=== PATIENT | male | born 1960 | race African-American/Black ===

== ENCOUNTER 2016-05-26 13:43 | Inpatient (IN) | payer OTHER ==
[2016-05-26 17:00] VITALS: BMI 33.0
--- NOTE | 2016-05-26 19:35 | HP ---
Admission ROS [facility] [place] [facility] Chief Complaint: i want to go to rehab Allergies/Adverse Reactions: Allergies Allergy/AdvReac Type Severity Reaction Status Date / Time Fish Containing Products Allergy Severe Hives Verified 05/26/16 17:00 enalapril [Enalapril] Allergy Intermediate MOUTH Verified 05/26/16 17:00 SWELLING (ENALAPRIL SUSPECTED) Pork/Porcine Containing Allergy Unknown "NO PORK" Verified 05/26/16 17:00 Products History of Present Illness: 55 years old male with long history of alcohol opiate nicotine dependence, has diabetes ii and positive ppd, chronic back pain, sciatic left leg is admitted to rehab Exam Limitations: No Limitations - Ebola screening Have you traveled outside of the country in the last 21 days: No Have you had contact with anyone from an Ebola affected area: No Have you been sick,other than usual withdrawal symptoms: No Do you have a fever: No - Review of Systems Constitutional: Weight Stable EENT: reports: Blurred Vision (diabetes complication) Respiratory: reports: Cough Cardiac: reports: No Symptoms Reported GI: reports: Constipated : reports: No Symptoms Reported Musculoskeletal: reports: Back Pain Neuro: reports: No Symptoms reported Endocrine: reports: No Symptoms Reported Hematology: reports: No Symptoms Reported Psychiatric: reports: Judgement Intact, Orientated x3, Depressed Other Systems: Reviewed and Negative Patient History - Patient Medical History Hx Anemia: No Hx Asthma: No Hx Chronic Obstructive Pulmonary Disease (COPD): No Hx Cancer: No Hx Cardiac Disorders: No Hx Congestive Heart Failure: No Hx Hypertension: Yes (non compliance) Hx Hypercholesterolemia: No Hx Pacemaker: No HX Cerebrovascular Accident: No Hx Seizures: No Hx Dementia: No Hx Diabetes: Yes Hx Gastrointestinal Disorders: No Hx Liver Disease: No Hx Genitourinary Disorders: No Hx Sexually Transmitted Disorders: No Hx Renal Disease (ESRD): No Hx Thyroid Disease: No Hx Human Immunodeficiency Virus (HIV): No Hx Hepatitis C: No Hx Depression: Yes Hx Suicide Attempt: No Hx Bipolar Disorder: No Hx Schizophrenia: No - Patient Surgical History Past Surgical History: No Hx Neurologic Surgery: No Hx Cataract Extraction: No Hx Cardiac Surgery: No Hx Lung Surgery: No Hx Breast Surgery: No Hx Breast Biopsy: No Hx Abdominal Surgery: No Hx Appendectomy: No Hx Cholecystectomy: No Hx Genitourinary Surgery: No Hx Orthopedic Surgery: No - PPD History Previous Implant?: Yes Documented Results: Positive w/proof Implanted On Prior [facility] Admission?: No Date: 02/19/16 PPD to be Administered?: No - Smoking Cessation Smoking history: Current every day smoker Have you smoked in the past 12 months: Yes Aproximately how many cigarettes per day: 10 Cigars Per Day: 0 Hx Chewing Tobacco Use: No Initiated information on smoking cessation: Yes 'Breaking Loose' booklet given: 05/26/16 - Substance & Tx. History Hx Alcohol Use: Yes Hx Substance Use: Yes Substance Use Type: Alcohol, Opiates Hx Substance Use Treatment: Yes - Substances Abused Alcohol Route: Oral Frequency: Daily Amount used: 16oz x 6pack +pint gin Age of first use: 29 Date of Last Use: 05/19/16 Family Disease History - Family Disease History Family Disease History: Diabetes: Brother, Other: Father (), Mother ( ), Sister () Admission Physical Exam S - Vital Signs Vital Signs: Vital Signs - 24 hr 05/26/16 16:58 Temperature 96.9 F L Pulse Rate 85 Respiratory 18 Rate Blood Pressure 109/79 - Physical General Appearance: Yes: No Apparent Distress, Nourished, Appropriately Dressed HEENTM: Yes: Hearing grossly Normal, Normal ENT Inspection, Normocephalic, Normal Voice, Other (poor eye sight - diabetes related) Respiratory: Yes: Chest Non-Tender, Lungs Clear, Normal Breath Sounds, No Respiratory Distress Neck: Yes: Supple, Trachea in good position Breast: Yes: Breasts Symetrical Cardiology: Yes: Regular Rhythm, Regular Rate, S1, S2 Abdominal: Yes: Non Tender, Soft Genitourinary: Yes: Within Normal Limits Back: Yes: Normal Inspection Musculoskeletal: Yes: full range of Motion, Gait Steady Extremities: Yes: Normal Inspection, Normal Range of Motion, Non-Tender Neurological: Yes: Fully Oriented, Alert, Motor Strength 5/5, Normal Response, Depressed Affect Integumentary: Yes: Warm Lymphatic: Yes: Within Normal Limits - Diagnostic (1) Essential hypertension Current Visit: Yes Status: Active (2) Alcohol dependence with uncomplicated withdrawal Current Visit: Yes Status: Acute (3) Opioid dependence with withdrawal Current Visit: Yes Status: Acute (4) Nicotine dependence Current Visit: Yes Status: Acute Qualifiers: Nicotine product type: cigarettes Substance use status: in withdrawal Qualified Code(s): F17.213 - Nicotine dependence, cigarettes, with withdrawal (5) Diabetes mellitus type II, controlled Current Visit: Yes Status: Acute Qualifiers: Diabetes mellitus complication status: with ophthalmic complications Diabetes mellitus complication detail: with diabetic retinopathy Diabetic retinopathy severity: with mild nonproliferative retinopathy Diabetes mellitus macular edema: without macular edema Diabetes mellitus termite technician insulin use: without fdc use Qualified Code(s): E11.329 - Type 2 diabetes mellitus with mild nonproliferative diabetic retinopathy without macular edema (6) Chronic low back pain Current Visit: Yes Status: Chronic (7) Left sciatic nerve pain Current Visit: Yes Status: Acute Cleared for Admission [facility] - Detox or Rehab [facility] Level of Care: Observation Bed Detox Regimen/Protocol: Not Applicable Claeared for Rehab Admission: Yes [facility] Breath Alcohol Content Breath Alcohol Content: 0 Urine Drug Screen - Results Drug Screen Negative: No Urine Drug Screen Results: BZO-Benzodiazepines, MTD-Methadone
[2016-05-26] MEDS ORDERED: LOPERAMIDE HCL 2 MG CAPSULE PO PRN (19:42)
[2016-05-26] MEDS ORDERED: MAG HYDROX/AL HYDROX/SIMETH 30 ML UNIT-DOSE CUP PO PRN (19:42)
[2016-05-26] MEDS ORDERED: NICOTINE POLACRILEX 2 MG GUM BC PRN (19:42)
[2016-05-26] MEDS ORDERED: MAGNESIUM HYDROX 2400MG/30ML ORAL SUSPENSION 30 ML CUP PO PRN (19:42)
[2016-05-26] MEDS ORDERED: MAGNESIUM CITRATE 300 ML BOTTLE PO PRN (19:42)
[2016-05-26] MEDS: THIAMINE HCL 100 MG TABLET (FP) PO SCH (21:41)
[2016-05-26] MEDS: hydrOXYzine PAMOATE 50 MG CAPSULE (FP) PO PRN (21:43)
--- NOTE | 2016-05-26 23:08 | PN ---
[facility] Progress Note Note: RECEIVED NURSE CALL PATIENT REQUESTS SECOND DOSE OF METFORMIN 500 MG TO BE ADMINISTERED BEFORE BED TIME CONTINUE DETOX
[2016-05-26] MEDS: CYCLOBENZAPRINE HCL 10 MG TABLET (FP) PO PRN (23:42)
[2016-05-26] MEDS: metFORMIN HCL 500 MG TABLET (FP) PO SCH (23:42)
[2016-05-26] MEDS: guaiFENesin/D-METHORPHAN HB 10 ML UNIT-DOSE CUPS PO PRN (23:42)
--- NOTE | 2016-05-27 00:01 | PN ---
[facility] Progress Note Note: RECEIVED PHARMACIST CALL CREATININ 2.3 IN 2013 LAB PENDING 2016 LATEST METFORMIN RENEW ON 05/22/16 CONTINUE REHAB
[2016-05-27] MEDS: metFORMIN HCL 500 MG TABLET (FP) PO SCH ×2 (06:35→21:44)
[2016-05-27] MEDS ORDERED: metFORMIN HCL 500 MG TABLET (FP) PO SCH ×2 (07:00→22:00)
[2016-05-27] MEDS: amLODIPine BESYLATE 5 MG TABLET (FP) PO SCH (10:20)
[2016-05-27] MEDS: LIDOCAINE 5% TOPICAL PATCH TP SCH (10:20)
[2016-05-27] MEDS: PRENATAL VITAMINS W/ FOLIC ACID TABLET (FP) PO SCH (10:20)
[2016-05-27] MEDS: NICOTINE 14 MG/24 HOURS TOPICAL PATCH TD SCH (10:21)
[2016-05-27] MEDS: THIAMINE HCL 100 MG TABLET (FP) PO SCH (21:44)
[2016-05-27] MEDS: diphenhydrAMINE HCL 50 MG CAPSULE PO PRN (21:45)
[2016-05-28] MEDS: metFORMIN HCL 500 MG TABLET (FP) PO SCH ×2 (06:14→21:33)
[2016-05-28] MEDS: NICOTINE 14 MG/24 HOURS TOPICAL PATCH TD SCH (10:14)
[2016-05-28] MEDS: LIDOCAINE 5% TOPICAL PATCH TP SCH (10:14)
[2016-05-28] MEDS: PRENATAL VITAMINS W/ FOLIC ACID TABLET (FP) PO SCH (10:14)
[2016-05-28] MEDS: amLODIPine BESYLATE 5 MG TABLET (FP) PO SCH (10:14)
[2016-05-28 10:18] LABS: MCHC 32.6 g/dl (32.0-35.9); MEAN CELL VOLUME 95.3 fl (80-96); PLATELET COUNT 88 K/MM3 (134-434); RDW 14.1 % (11.9-15.9); WHITE BLOOD COUNT 3.3 K/mm3 (4.0-10.0)
[2016-05-28 10:24] LABS: ALBUMIN 3.3 g/dl (3.4-5.0)
[2016-05-28 10:27] LABS: ALK PHOS 88 U/L (45-117); ANION GAP 7 (8-16); BILIRUBIN,TOTAL 0.2 mg/dL (0.2-1.0); CO2 29 mmol/L (21-32); CREATININE 0.9 mg/dL (0.7-1.3); GLUCOSE,RANDOM 94 mg/dL (74-106); SGOT/AST 13 U/L (15-37); SGPT/ALT 18 U/L (12-78); TOT PROT 6.3 g/dl (6.4-8.2)
[2016-05-28] MEDS: THIAMINE HCL 100 MG TABLET (FP) PO SCH (21:33)
[2016-05-28] MEDS: guaiFENesin/D-METHORPHAN HB 10 ML UNIT-DOSE CUPS PO PRN (21:33)
[2016-05-28] MEDS: diphenhydrAMINE HCL 50 MG CAPSULE PO PRN (21:42)
--- NOTE | 2016-05-28 22:46 | EKG ---
Test Reason : Blood Pressure : / mmHG Vent. Rate : 082 BPM Atrial Rate : 082 BPM P-R Int : 142 ms QRS Dur : 088 ms QT Int : 380 ms P-R-T Axes : 057 009 048 degrees QTc Int : 443 ms NORMAL SINUS RHYTHM NONSPECIFIC T WAVE ABNORMALITY ABNORMAL ECG NO PREVIOUS ECGS AVAILABLE Confirmed by SRIDEVI MONTIEL, EVA ([id number]) on 05/28/2016 10:45:57 PM Referred By: Confirmed By:EVA LAUREANO MD
[2016-05-29] MEDS: metFORMIN HCL 500 MG TABLET (FP) PO SCH ×2 (06:16→21:57)
[2016-05-29] MEDS: amLODIPine BESYLATE 5 MG TABLET (FP) PO SCH (10:12)
[2016-05-29] MEDS: PRENATAL VITAMINS W/ FOLIC ACID TABLET (FP) PO SCH (10:12)
[2016-05-29] MEDS: LIDOCAINE 5% TOPICAL PATCH TP SCH (10:12)
[2016-05-29] MEDS: NICOTINE 14 MG/24 HOURS TOPICAL PATCH TD SCH (10:12)
[2016-05-29] MEDS: IBUPROFEN 400 MG TABLET (FP) PO PRN (10:13)
[2016-05-29] MEDS: guaiFENesin/D-METHORPHAN HB 10 ML UNIT-DOSE CUPS PO PRN (10:14)
--- NOTE | 2016-05-29 10:28 | HP ---
Psychiatrist Admission - Data Date of interview: 05/29/16 Admission source: [facility] Identifying data: This is the first 5N inpatient Medical History: HTN, DM type II, Positive PPD(received treatment - has a CXR on file), chronic lower back pain and left sciatic nerve pain, smokes cigarettes 1PPD. Psychiatric History: Patient reports he was under the treatment for depression and anxiety last year while in [facility], was on Zoloft and Trazodone(had a priapism) He reports was on Neurontin for his back pain which helped him with his anxiety, patient reports that last year he lost a lot of family members: his parents, sisiter, and g/f, states he hears voices and sees things, states was in therapu for his losses. Physical/Sexual Abuse/Trauma History: Denies histor of sexual, physical and verbal abuse. Vital Signs: Vital Signs - 24 hr 05/29/16 05/29/16 03:29 07:25 Temperature 97.4 F L Pulse Rate 78 Respiratory 18 18 Rate Blood Pressure 138/89 Allergies/Adverse Reactions: Allergies Allergy/AdvReac Type Severity Reaction Status Date / Time Fish Containing Products Allergy Severe Hives Verified 05/26/16 17:00 enalapril [Enalapril] Allergy Intermediate MOUTH Verified 05/26/16 17:00 SWELLING (ENALAPRIL SUSPECTED) Pork/Porcine Containing Allergy Unknown "NO PORK" Verified 05/26/16 17:00 Products Date of last physical exam: 05/26/16 Concur with the findings of this exam: Yes - Substance Abuse/Tx History Hx Alcohol Use: Yes Hx Substance Use: Yes Substance Use Type: Alcohol (beer, vodka daily use), Heroin (2-3 bags ) Hx Substance Use Treatment: Yes ([facility]) - Admission Criteria Previous failed treatment: Yes Poor recovery environment: Yes Comorbidities: Yes Lacks judgement: Yes Mental Status Exam - Mental Status Exam Alert and Oriented to: Time, Place, Person Cognitive Function: Grossly Intact Patient Appearance: Well Groomed Mood: Depressed, Sad, Anxious Affect: Appropriate, Mood Congruent Patient Behavior: Cooperative Speech Pattern: Clear Voice Loudness: Normal Thought Process: Intact, Goal Oriented Thought Disorder: Not Present Hallucinations: Auditory (hears voices), Visual (reports he sees things) Suicidal Ideation: Denies Homicidal Ideation: Denies Insight/Judgement: Fair Sleep: Poorly, Difficulty falling asleep Psychiatric Findings - Problem List ([place] 1, 2,3) (1) Alcohol dependence Current Visit: No Status: Active (2) Opioid dependence Current Visit: No Status: Active (3) MDD (major depressive disorder), recurrent episode Current Visit: Yes Status: Acute (4) Bereavement Current Visit: Yes Status: Acute - Initial Treatment Plan Initial Treatment Plan: will restart Gabapentin 200 mg po tid, start Prozac 10 mg po daily and Seroquel 25 mg po hs, side-effects and benefits discussed with the patient, continue to monitor progress.
[2016-05-29] MEDS: GABAPENTIN 100 MG CAPSULE (FP) PO SCH ×2 (14:28→21:55)
[2016-05-29] MEDS: THIAMINE HCL 100 MG TABLET (FP) PO SCH (21:55)
[2016-05-29] MEDS: QUEtiapine FUMARATE 25 MG TABLET (FP) PO SCH (21:56)
[2016-05-29] MEDS ORDERED: traZODone HCL 50 MG TABLET (FP) PO SCH (22:00)
[2016-05-30] MEDS: GABAPENTIN 100 MG CAPSULE (FP) PO SCH ×3 (06:12→21:50)
[2016-05-30] MEDS: metFORMIN HCL 500 MG TABLET (FP) PO SCH ×2 (06:13→21:50)
[2016-05-30] MEDS: LIDOCAINE 5% TOPICAL PATCH TP SCH (10:19)
[2016-05-30] MEDS: PRENATAL VITAMINS W/ FOLIC ACID TABLET (FP) PO SCH (10:19)
[2016-05-30] MEDS: NICOTINE 14 MG/24 HOURS TOPICAL PATCH TD SCH (10:19)
[2016-05-30] MEDS: amLODIPine BESYLATE 5 MG TABLET (FP) PO SCH (10:19)
[2016-05-30] MEDS: FLUoxetine HCL 10 MG CAPSULE (FP) PO SCH (10:19)
[2016-05-30] MEDS: QUEtiapine FUMARATE 25 MG TABLET (FP) PO SCH (21:50)
[2016-05-30] MEDS: THIAMINE HCL 100 MG TABLET (FP) PO SCH (21:51)
[2016-05-31] MEDS: guaiFENesin/D-METHORPHAN HB 10 ML UNIT-DOSE CUPS PO PRN ×4 (00:20→21:35)
[2016-05-31] MEDS: GABAPENTIN 100 MG CAPSULE (FP) PO SCH ×3 (06:17→21:31)
[2016-05-31] MEDS: metFORMIN HCL 500 MG TABLET (FP) PO SCH ×2 (06:17→21:31)
[2016-05-31] MEDS: P-EPHED 60MG/TRIPROLIDI 2.5MG TABLET PO PRN ×2 (08:27→21:34)
[2016-05-31] MEDS: ACETAMINOPHEN 325 MG TABLET (FP) PO PRN ×2 (08:28→13:33)
[2016-05-31] MEDS: MENTHOL/PHENOL 1 EACH UD MM PRN ×3 (08:29→21:36)
[2016-05-31 09:58] LABS: URINE APPEARANCE CLEAR; URINE BILIRUBIN NEGATIVE (NEGATIVE); URINE BLOOD NEGATIVE (NEGATIVE); URINE COLOR YELLOW; URINE GLUCOSE (UA) NEGATIVE (NEGATIVE); URINE KETONE NEGATIVE (NEGATIVE); URINE LEUK ESTERASE NEGATIVE (NEGATIVE); URINE NITRITE NEGATIVE (NEGATIVE); URINE PROTEIN NEGATIVE (NEGATIVE); URINE UROBILINOGEN NEGATIVE E.U./dl (0.2-1.0)
[2016-05-31] MEDS: LIDOCAINE 5% TOPICAL PATCH TP SCH (10:22)
[2016-05-31] MEDS: PRENATAL VITAMINS W/ FOLIC ACID TABLET (FP) PO SCH (10:22)
[2016-05-31] MEDS: FLUoxetine HCL 10 MG CAPSULE (FP) PO SCH (10:22)
[2016-05-31] MEDS: amLODIPine BESYLATE 5 MG TABLET (FP) PO SCH (10:22)
[2016-05-31] MEDS: NICOTINE 14 MG/24 HOURS TOPICAL PATCH TD SCH (10:22)
[2016-05-31] MEDS ORDERED: COLLOIDAL OATMEAL 1 EACH PACKET TP PRN (13:31)
[2016-05-31] MEDS: THIAMINE HCL 100 MG TABLET (FP) PO SCH (21:31)
[2016-05-31] MEDS: QUEtiapine FUMARATE 25 MG TABLET (FP) PO SCH (21:31)
[2016-06-01] MEDS: metFORMIN HCL 500 MG TABLET (FP) PO SCH ×2 (06:21→21:10)
[2016-06-01] MEDS: GABAPENTIN 100 MG CAPSULE (FP) PO SCH (06:21)
[2016-06-01] MEDS: guaiFENesin/D-METHORPHAN HB 10 ML UNIT-DOSE CUPS PO PRN ×3 (06:21→21:11)
[2016-06-01] MEDS: P-EPHED 60MG/TRIPROLIDI 2.5MG TABLET PO PRN ×3 (06:26→21:11)
[2016-06-01] MEDS: MENTHOL/PHENOL 1 EACH UD MM PRN (06:26)
[2016-06-01] MEDS ORDERED: COLLOIDAL OATMEAL 1 EACH PACKET TP SCH (10:00)
[2016-06-01] MEDS: amLODIPine BESYLATE 5 MG TABLET (FP) PO SCH (10:28)
[2016-06-01] MEDS: PRENATAL VITAMINS W/ FOLIC ACID TABLET (FP) PO SCH (10:28)
[2016-06-01] MEDS: FLUoxetine HCL 10 MG CAPSULE (FP) PO SCH (10:28)
[2016-06-01] MEDS: NICOTINE 14 MG/24 HOURS TOPICAL PATCH TD SCH (10:29)
[2016-06-01] MEDS: LIDOCAINE 5% TOPICAL PATCH TP SCH (10:31)
[2016-06-01] MEDS ORDERED: COLLOIDAL OATMEAL 1 BAR EACH TP PRN (10:50)
[2016-06-01] MEDS: GABAPENTIN 300 MG CAPSULE (FP) PO SCH ×2 (14:25→21:09)
--- NOTE | 2016-06-01 14:30 | PN ---
Psychiatric Progress Note Vital Signs: Vital Signs Period Temp Pulse Resp BP Sys/Austin Pulse Ox Last 24 Hr 97.3 F 83 18-18 109/60 Date of Session: 06/01/16 Chief Complaint:: "insomnia, anxiety" HPI: Patient is addressing alcohol,opioid, dependence comorbid MDD and Bereavement. ROS: WNL Current Medications: Active Medications Generic Name Dose Route Start Last Admin Trade Name Freq PRN Reason Stop Dose Admin Acetaminophen 650 mg 05/26/16 19:42 05/31/16 13:33 Tylenol - PO 650 mg Q4H PRN Administration PAIN Al Hydroxide/Mg Hydroxide 30 ml 05/26/16 19:42 Mylanta Oral Suspension - PO Q6H PRN DYSPEPSIA Amlodipine Besylate 5 mg 05/27/16 10:00 06/01/16 10:28 Norvasc - PO 5 mg DAILY VERONICA Administration Colloidal Oatmeal 1 applic 06/01/16 10:50 06/01/16 11:11 Aveeno Soap - TP 1 applic DAILY PRN Administration HYGEINE Cyclobenzaprine HCl 10 mg 05/26/16 19:49 05/26/16 23:42 Flexeril - PO 10 mg TID PRN Administration MUSCLE SPASMS Diphenhydramine HCl 50 mg 05/26/16 19:42 05/28/16 21:42 Benadryl - PO 50 mg HSMR1 PRN Administration INSOMNIA Eucalyptus/Menthol/Phenol/Sorbitol 1 each 05/26/16 19:42 06/01/16 06:26 Cepastat Lozenge - MM 1 each Q4H PRN Administration SORE THROAT Fluoxetine HCl 10 mg 05/30/16 10:00 06/01/16 10:28 Prozac - PO 10 mg DAILY VERONICA Administration Gabapentin 300 mg 06/01/16 14:00 Neurontin - PO TID VERONICA Guaifenesin 10 ml 05/26/16 19:42 06/01/16 06:21 Robitussin Dm - PO 10 ml Q6H PRN Administration COUGH Hydroxyzine Pamoate 50 mg 05/26/16 19:42 05/26/16 21:43 Vistaril - PO 50 mg Q4H PRN Administration AGITATION Ibuprofen 400 mg 05/26/16 19:42 05/29/16 10:13 Motrin - PO 400 mg Q6H PRN Administration SEVERE PAIN Lidocaine 1 patch 05/27/16 10:00 06/01/16 10:31 Lidoderm Patch - TP 1 patch DAILY VERONICA Administration Loperamide HCl 4 mg 05/26/16 19:42 Imodium - PO Q6H PRN DIARRHEA Magnesium Citrate 300 ml 05/26/16 19:42 Citroma - PO Q48H PRN CONSTIPATION Magnesium Hydroxide 30 ml 05/26/16 19:42 Milk Of Magnesia - PO DAILY PRN CONSTIPATION Metformin HCl 500 mg 05/27/16 07:00 06/01/16 06:21 Glucophage - PO 500 mg ACBK VERONICA Administration Metformin HCl 500 mg 05/26/16 23:45 05/31/16 21:31 Glucophage - PO 500 mg HS VERONICA Administration Nicotine 14 mg 05/27/16 10:00 06/01/16 10:29 Nicoderm Patch - TD Not Given DAILY VERONICA Nicotine Polacrilex 2 mg 05/26/16 19:42 Nicorette Gum - BC Q2H PRN NICOTINE REPLACEMENT RX Multivit/Folic Acid/Iron 1 tab 05/27/16 10:00 06/01/16 10:28 Vitamins ([facility]) - PO 1 tab DAILY VERONICA Administration Pseudoephedrine/Triprolidine 1 combo 05/26/16 19:42 06/01/16 06:26 Actifed - PO 1 combo TID PRN Administration NASAL CONGESTION Quetiapine Fumarate 50 mg 06/01/16 22:00 Seroquel - PO HS VERONICA Thiamine HCl 100 mg 05/26/16 22:00 05/31/16 21:31 Vitamin B1 - PO 100 mg HS VERONICA Administration Medication(s) Change(s): increase Gabapentin 300 mg po tid and Seroquel 50 mg po hs. Current Side Effect: No Lab tests ordered: No Lab tests reviewed: Yes Provider note:: Patient reports that he does not feeling well, still anxious and not sleeping, "thinking a lot". He reports no side-effects from current medications, reviewed indications and properties of each, will increase gabapentin and seroquel, continue to monitor progress. Total face to face time:: 15 Mental Status Exam - Mental Status Exam Alert and Oriented to: Time, Place, Person Cognitive Function: Good Patient Appearance: Well Groomed Mood: Sad, Anxious Affect: Appropriate, Mood Congruent Patient Behavior: Appropriate, Cooperative Speech Pattern: Clear, Appropriate Voice Loudness: Normal Thought Process: Goal Oriented Thought Disorder: Not Present Hallucinations: Denies Suicidal Ideation: Denies Homicidal Ideation: Denies Insight/Judgement: Fair Sleep: Poorly, Difficulty falling asleep Appetite: Fair Muscle strength/Tone: Normal Gait/Station: Normal Psychiatric Treatment Plan - Problem List (1) Alcohol dependence Current Visit: No (2) Opioid dependence Current Visit: No (3) MDD (major depressive disorder), recurrent episode Current Visit: Yes (4) Bereavement Current Visit: Yes
[2016-06-01] MEDS: THIAMINE HCL 100 MG TABLET (FP) PO SCH (21:09)
[2016-06-01] MEDS: QUEtiapine FUMARATE 50 MG TABLET PO SCH (21:11)
[2016-06-01] MEDS: diphenhydrAMINE HCL 50 MG CAPSULE PO PRN (21:11)
[2016-06-02] MEDS: GABAPENTIN 300 MG CAPSULE (FP) PO SCH ×3 (06:27→21:23)
[2016-06-02] MEDS: metFORMIN HCL 500 MG TABLET (FP) PO SCH ×2 (06:30→21:23)
[2016-06-02] MEDS: guaiFENesin/D-METHORPHAN HB 10 ML UNIT-DOSE CUPS PO PRN (06:32)
[2016-06-02] MEDS: LIDOCAINE 5% TOPICAL PATCH TP SCH (10:33)
[2016-06-02] MEDS: FLUoxetine HCL 10 MG CAPSULE (FP) PO SCH (10:34)
[2016-06-02] MEDS: PRENATAL VITAMINS W/ FOLIC ACID TABLET (FP) PO SCH (10:34)
[2016-06-02] MEDS: NICOTINE 14 MG/24 HOURS TOPICAL PATCH TD SCH (10:34)
[2016-06-02] MEDS: amLODIPine BESYLATE 5 MG TABLET (FP) PO SCH (10:34)
[2016-06-02] MEDS: P-EPHED 60MG/TRIPROLIDI 2.5MG TABLET PO PRN (10:36)
[2016-06-02] MEDS: diphenhydrAMINE HCL 50 MG CAPSULE PO PRN (21:23)
[2016-06-02] MEDS: QUEtiapine FUMARATE 50 MG TABLET PO SCH (21:23)
[2016-06-02] MEDS: THIAMINE HCL 100 MG TABLET (FP) PO SCH (21:23)
[2016-06-03] MEDS: metFORMIN HCL 500 MG TABLET (FP) PO SCH ×2 (06:16→21:36)
[2016-06-03] MEDS: GABAPENTIN 300 MG CAPSULE (FP) PO SCH ×3 (06:16→21:36)
[2016-06-03] MEDS: P-EPHED 60MG/TRIPROLIDI 2.5MG TABLET PO PRN (10:20)
[2016-06-03] MEDS: amLODIPine BESYLATE 5 MG TABLET (FP) PO SCH (10:20)
[2016-06-03] MEDS: PRENATAL VITAMINS W/ FOLIC ACID TABLET (FP) PO SCH (10:20)
[2016-06-03] MEDS: LIDOCAINE 5% TOPICAL PATCH TP SCH (10:20)
[2016-06-03] MEDS: NICOTINE 14 MG/24 HOURS TOPICAL PATCH TD SCH (10:20)
[2016-06-03] MEDS: FLUoxetine HCL 10 MG CAPSULE (FP) PO SCH (10:20)
[2016-06-03] MEDS: QUEtiapine FUMARATE 50 MG TABLET PO SCH (21:36)
[2016-06-03] MEDS: diphenhydrAMINE HCL 50 MG CAPSULE PO PRN (21:36)
[2016-06-03] MEDS: THIAMINE HCL 100 MG TABLET (FP) PO SCH (21:36)
[2016-06-04] MEDS: GABAPENTIN 300 MG CAPSULE (FP) PO SCH ×3 (06:16→21:38)
[2016-06-04] MEDS: metFORMIN HCL 500 MG TABLET (FP) PO SCH ×2 (06:16→21:38)
[2016-06-04] MEDS: PRENATAL VITAMINS W/ FOLIC ACID TABLET (FP) PO SCH (10:16)
[2016-06-04] MEDS: amLODIPine BESYLATE 5 MG TABLET (FP) PO SCH (10:16)
[2016-06-04] MEDS: FLUoxetine HCL 10 MG CAPSULE (FP) PO SCH (10:16)
[2016-06-04] MEDS: LIDOCAINE 5% TOPICAL PATCH TP SCH (10:17)
[2016-06-04] MEDS: P-EPHED 60MG/TRIPROLIDI 2.5MG TABLET PO PRN (10:17)
[2016-06-04] MEDS: NICOTINE 14 MG/24 HOURS TOPICAL PATCH TD SCH (10:18)
[2016-06-04] MEDS: hydrOXYzine PAMOATE 50 MG CAPSULE (FP) PO PRN (21:38)
[2016-06-04] MEDS: THIAMINE HCL 100 MG TABLET (FP) PO SCH (21:38)
[2016-06-04] MEDS: QUEtiapine FUMARATE 50 MG TABLET PO SCH (21:38)
[2016-06-05] MEDS: metFORMIN HCL 500 MG TABLET (FP) PO SCH ×2 (06:23→21:36)
[2016-06-05] MEDS: GABAPENTIN 300 MG CAPSULE (FP) PO SCH ×3 (06:23→21:36)
[2016-06-05] MEDS: amLODIPine BESYLATE 5 MG TABLET (FP) PO SCH (09:52)
[2016-06-05] MEDS: FLUoxetine HCL 10 MG CAPSULE (FP) PO SCH (09:52)
[2016-06-05] MEDS: NICOTINE 14 MG/24 HOURS TOPICAL PATCH TD SCH (09:53)
[2016-06-05] MEDS: PRENATAL VITAMINS W/ FOLIC ACID TABLET (FP) PO SCH (09:53)
[2016-06-05] MEDS: LIDOCAINE 5% TOPICAL PATCH TP SCH (09:53)
[2016-06-05] MEDS: IBUPROFEN 400 MG TABLET (FP) PO PRN (09:55)
[2016-06-05] MEDS: THIAMINE HCL 100 MG TABLET (FP) PO SCH (21:36)
[2016-06-05] MEDS: QUEtiapine FUMARATE 50 MG TABLET PO SCH (21:36)
[2016-06-05] MEDS: hydrOXYzine PAMOATE 50 MG CAPSULE (FP) PO PRN (21:37)
[2016-06-06] MEDS: GABAPENTIN 300 MG CAPSULE (FP) PO SCH ×3 (06:22→21:11)
[2016-06-06] MEDS: metFORMIN HCL 500 MG TABLET (FP) PO SCH ×2 (06:22→21:11)
[2016-06-06] MEDS: LIDOCAINE 5% TOPICAL PATCH TP SCH (09:56)
[2016-06-06] MEDS: NICOTINE 14 MG/24 HOURS TOPICAL PATCH TD SCH (09:56)
[2016-06-06] MEDS: amLODIPine BESYLATE 5 MG TABLET (FP) PO SCH (09:57)
[2016-06-06] MEDS: FLUoxetine HCL 10 MG CAPSULE (FP) PO SCH (09:57)
[2016-06-06] MEDS: PRENATAL VITAMINS W/ FOLIC ACID TABLET (FP) PO SCH (09:57)
[2016-06-06] MEDS: THIAMINE HCL 100 MG TABLET (FP) PO SCH (21:11)
[2016-06-06] MEDS: QUEtiapine FUMARATE 50 MG TABLET PO SCH (21:11)
[2016-06-06] MEDS: CYCLOBENZAPRINE HCL 10 MG TABLET (FP) PO PRN (21:11)
[2016-06-06] MEDS: hydrOXYzine PAMOATE 50 MG CAPSULE (FP) PO PRN (21:12)
[2016-06-07] MEDS: GABAPENTIN 300 MG CAPSULE (FP) PO SCH ×3 (06:25→21:34)
[2016-06-07] MEDS: metFORMIN HCL 500 MG TABLET (FP) PO SCH ×2 (06:25→21:34)
[2016-06-07] MEDS: IBUPROFEN 600 MG TABLET (FP) PO PRN ×2 (06:25→14:16)
[2016-06-07] MEDS: FLUoxetine HCL 10 MG CAPSULE (FP) PO SCH (09:25)
[2016-06-07] MEDS: amLODIPine BESYLATE 5 MG TABLET (FP) PO SCH (09:25)
[2016-06-07] MEDS: PRENATAL VITAMINS W/ FOLIC ACID TABLET (FP) PO SCH (09:25)
[2016-06-07] MEDS: LIDOCAINE 5% TOPICAL PATCH TP SCH (09:26)
[2016-06-07] MEDS: NICOTINE 14 MG/24 HOURS TOPICAL PATCH TD SCH (09:26)
[2016-06-07] MEDS: CYCLOBENZAPRINE HCL 10 MG TABLET (FP) PO PRN ×2 (09:28→21:38)
[2016-06-07] MEDS: THIAMINE HCL 100 MG TABLET (FP) PO SCH (21:34)
[2016-06-07] MEDS: QUEtiapine FUMARATE 50 MG TABLET PO SCH (21:34)
[2016-06-07] MEDS: hydrOXYzine PAMOATE 50 MG CAPSULE (FP) PO PRN (21:38)
[2016-06-08] MEDS: GABAPENTIN 300 MG CAPSULE (FP) PO SCH ×3 (06:20→21:26)
[2016-06-08] MEDS: metFORMIN HCL 500 MG TABLET (FP) PO SCH ×2 (06:20→21:26)
[2016-06-08] MEDS: IBUPROFEN 600 MG TABLET (FP) PO PRN ×2 (06:21→14:11)
[2016-06-08] MEDS: amLODIPine BESYLATE 5 MG TABLET (FP) PO SCH (10:36)
[2016-06-08] MEDS: CYCLOBENZAPRINE HCL 10 MG TABLET (FP) PO PRN ×2 (10:36→21:27)
[2016-06-08] MEDS: FLUoxetine HCL 10 MG CAPSULE (FP) PO SCH (10:36)
[2016-06-08] MEDS: PRENATAL VITAMINS W/ FOLIC ACID TABLET (FP) PO SCH (10:37)
[2016-06-08] MEDS: LIDOCAINE 5% TOPICAL PATCH TP SCH (10:38)
[2016-06-08] MEDS: THIAMINE HCL 100 MG TABLET (FP) PO SCH (21:26)
[2016-06-08] MEDS: QUEtiapine FUMARATE 50 MG TABLET PO SCH (21:26)
[2016-06-08] MEDS: hydrOXYzine PAMOATE 50 MG CAPSULE (FP) PO PRN (21:27)
[2016-06-09] MEDS: IBUPROFEN 600 MG TABLET (FP) PO PRN (06:20)
[2016-06-09] MEDS: metFORMIN HCL 500 MG TABLET (FP) PO SCH ×2 (06:20→21:11)
[2016-06-09] MEDS: GABAPENTIN 300 MG CAPSULE (FP) PO SCH ×3 (06:20→21:12)
[2016-06-09] MEDS: CYCLOBENZAPRINE HCL 10 MG TABLET (FP) PO PRN ×3 (07:29→21:10)
[2016-06-09] MEDS: LIDOCAINE 5% TOPICAL PATCH TP SCH (09:39)
[2016-06-09] MEDS: PRENATAL VITAMINS W/ FOLIC ACID TABLET (FP) PO SCH (09:40)
[2016-06-09] MEDS: amLODIPine BESYLATE 5 MG TABLET (FP) PO SCH (09:40)
[2016-06-09] MEDS: FLUoxetine HCL 10 MG CAPSULE (FP) PO SCH (09:40)
--- NOTE | 2016-06-09 11:49 | PN ---
BHS Progress Note Note: jacquelyn in the left knee,using cane at home for ambulation at home,to obtain cane for ambulatory aid
[2016-06-09] MEDS: hydrOXYzine PAMOATE 50 MG CAPSULE (FP) PO PRN (21:10)
[2016-06-09] MEDS: THIAMINE HCL 100 MG TABLET (FP) PO SCH (21:11)
[2016-06-09] MEDS: QUEtiapine FUMARATE 50 MG TABLET PO SCH (21:11)
[2016-06-10] MEDS: metFORMIN HCL 500 MG TABLET (FP) PO SCH ×2 (06:35→21:29)
[2016-06-10] MEDS: GABAPENTIN 300 MG CAPSULE (FP) PO SCH ×3 (06:36→21:29)
[2016-06-10] MEDS: CYCLOBENZAPRINE HCL 10 MG TABLET (FP) PO PRN ×3 (06:37→21:29)
[2016-06-10] MEDS: amLODIPine BESYLATE 5 MG TABLET (FP) PO SCH (10:21)
[2016-06-10] MEDS: LIDOCAINE 5% TOPICAL PATCH TP SCH (10:21)
[2016-06-10] MEDS: PRENATAL VITAMINS W/ FOLIC ACID TABLET (FP) PO SCH (10:21)
[2016-06-10] MEDS: FLUoxetine HCL 10 MG CAPSULE (FP) PO SCH (10:21)
[2016-06-10] MEDS: IBUPROFEN 600 MG TABLET (FP) PO PRN (10:22)
[2016-06-10] MEDS: hydrOXYzine PAMOATE 50 MG CAPSULE (FP) PO PRN (21:29)
[2016-06-10] MEDS: THIAMINE HCL 100 MG TABLET (FP) PO SCH (21:29)
[2016-06-10] MEDS: QUEtiapine FUMARATE 50 MG TABLET PO SCH (21:29)
[2016-06-11] MEDS: CYCLOBENZAPRINE HCL 10 MG TABLET (FP) PO PRN ×3 (06:34→21:43)
[2016-06-11] MEDS: GABAPENTIN 300 MG CAPSULE (FP) PO SCH ×3 (06:34→21:43)
[2016-06-11] MEDS: IBUPROFEN 600 MG TABLET (FP) PO PRN ×2 (06:34→14:05)
[2016-06-11] MEDS: metFORMIN HCL 500 MG TABLET (FP) PO SCH ×2 (06:34→21:42)
[2016-06-11] MEDS: amLODIPine BESYLATE 5 MG TABLET (FP) PO SCH (10:05)
[2016-06-11] MEDS: PRENATAL VITAMINS W/ FOLIC ACID TABLET (FP) PO SCH (10:05)
[2016-06-11] MEDS: FLUoxetine HCL 10 MG CAPSULE (FP) PO SCH (10:05)
[2016-06-11] MEDS: LIDOCAINE 5% TOPICAL PATCH TP SCH (10:06)
[2016-06-11] MEDS: hydrOXYzine PAMOATE 50 MG CAPSULE (FP) PO PRN (21:43)
[2016-06-11] MEDS: QUEtiapine FUMARATE 50 MG TABLET PO SCH (21:43)
[2016-06-11] MEDS: THIAMINE HCL 100 MG TABLET (FP) PO SCH (21:43)
[2016-06-12] MEDS: metFORMIN HCL 500 MG TABLET (FP) PO SCH ×2 (06:11→22:13)
[2016-06-12] MEDS: GABAPENTIN 300 MG CAPSULE (FP) PO SCH ×3 (06:13→22:13)
[2016-06-12] MEDS: FLUoxetine HCL 10 MG CAPSULE (FP) PO SCH (10:14)
[2016-06-12] MEDS: amLODIPine BESYLATE 5 MG TABLET (FP) PO SCH (10:14)
[2016-06-12] MEDS: PRENATAL VITAMINS W/ FOLIC ACID TABLET (FP) PO SCH (10:14)
[2016-06-12] MEDS: CYCLOBENZAPRINE HCL 10 MG TABLET (FP) PO PRN ×2 (10:15→22:13)
[2016-06-12] MEDS: LIDOCAINE 5% TOPICAL PATCH TP SCH (10:15)
[2016-06-12] MEDS: IBUPROFEN 600 MG TABLET (FP) PO PRN (14:13)
[2016-06-12] MEDS: hydrOXYzine PAMOATE 50 MG CAPSULE (FP) PO PRN (22:13)
[2016-06-12] MEDS: QUEtiapine FUMARATE 50 MG TABLET PO SCH (22:13)
[2016-06-12] MEDS: THIAMINE HCL 100 MG TABLET (FP) PO SCH (22:13)
[2016-06-13] MEDS: metFORMIN HCL 500 MG TABLET (FP) PO SCH ×2 (06:17→21:21)
[2016-06-13] MEDS: GABAPENTIN 300 MG CAPSULE (FP) PO SCH ×3 (06:17→21:21)
[2016-06-13] MEDS: PRENATAL VITAMINS W/ FOLIC ACID TABLET (FP) PO SCH (10:24)
[2016-06-13] MEDS: FLUoxetine HCL 10 MG CAPSULE (FP) PO SCH (10:24)
[2016-06-13] MEDS: amLODIPine BESYLATE 5 MG TABLET (FP) PO SCH (10:24)
[2016-06-13] MEDS: LIDOCAINE 5% TOPICAL PATCH TP SCH (10:25)
[2016-06-13] MEDS: IBUPROFEN 600 MG TABLET (FP) PO PRN (10:26)
[2016-06-13] MEDS: CYCLOBENZAPRINE HCL 10 MG TABLET (FP) PO PRN ×2 (10:26→21:21)
[2016-06-13] MEDS: THIAMINE HCL 100 MG TABLET (FP) PO SCH (21:21)
[2016-06-13] MEDS: hydrOXYzine PAMOATE 50 MG CAPSULE (FP) PO PRN (21:21)
[2016-06-13] MEDS: QUEtiapine FUMARATE 50 MG TABLET PO SCH (21:21)
[2016-06-14] MEDS: CYCLOBENZAPRINE HCL 10 MG TABLET (FP) PO PRN (06:10)
[2016-06-14] MEDS: GABAPENTIN 300 MG CAPSULE (FP) PO SCH ×3 (06:10→21:37)
[2016-06-14] MEDS: metFORMIN HCL 500 MG TABLET (FP) PO SCH ×2 (06:10→21:37)
[2016-06-14] MEDS: FLUoxetine HCL 10 MG CAPSULE (FP) PO SCH (09:44)
[2016-06-14] MEDS: PRENATAL VITAMINS W/ FOLIC ACID TABLET (FP) PO SCH (09:44)
[2016-06-14] MEDS: amLODIPine BESYLATE 5 MG TABLET (FP) PO SCH (09:44)
[2016-06-14] MEDS: IBUPROFEN 600 MG TABLET (FP) PO PRN ×2 (09:44→21:37)
[2016-06-14] MEDS: LIDOCAINE 5% TOPICAL PATCH TP SCH (09:45)
[2016-06-14] MEDS: THIAMINE HCL 100 MG TABLET (FP) PO SCH (21:36)
[2016-06-14] MEDS: QUEtiapine FUMARATE 50 MG TABLET PO SCH (21:37)
[2016-06-14] MEDS: hydrOXYzine PAMOATE 50 MG CAPSULE (FP) PO PRN (21:37)
[2016-06-15] MEDS: CYCLOBENZAPRINE HCL 10 MG TABLET (FP) PO PRN ×2 (06:15→09:57)
[2016-06-15] MEDS: GABAPENTIN 300 MG CAPSULE (FP) PO SCH (06:15)
[2016-06-15] MEDS: metFORMIN HCL 500 MG TABLET (FP) PO SCH (06:15)
[2016-06-15 06:57] VITALS: BP 113/69; PULSE 76; TEMP 97.6
--- NOTE | 2016-06-15 08:22 | PN ---
Psychiatric Progress Note Vital Signs: Vital Signs Period Temp Pulse Resp BP Sys/Austin Pulse Ox Last 24 Hr 97.6 F 76-114 18-20 113-120/68-69 Date of Session: 06/15/16 Chief Complaint:: discharge visit HPI: Patient has addressed alcohol, opioid, dependence comorbid MDD and Bereavement. ROS: HTN, DM type II, Positive PPD(received treatment - has a CXR on file), Back pain and left sciatic nerve pain medically managed. Current Medications: Active Medications Generic Name Dose Route Start Last Admin Trade Name Freq PRN Reason Stop Dose Admin Acetaminophen 650 mg 05/26/16 19:42 05/31/16 13:33 Tylenol - PO 650 mg Q4H PRN Administration PAIN Al Hydroxide/Mg Hydroxide 30 ml 05/26/16 19:42 06/06/16 09:58 Mylanta Oral Suspension - PO 30 ml Q6H PRN Administration DYSPEPSIA Amlodipine Besylate 5 mg 05/27/16 10:00 06/14/16 09:44 Norvasc - PO 5 mg DAILY VERONICA Administration Colloidal Oatmeal 1 applic 06/01/16 10:50 06/01/16 11:11 Aveeno Soap - TP 1 applic DAILY PRN Administration HYGEINE Cyclobenzaprine HCl 10 mg 05/26/16 19:49 06/15/16 06:15 Flexeril - PO 10 mg TID PRN Administration MUSCLE SPASMS Diphenhydramine HCl 50 mg 05/26/16 19:42 06/03/16 21:36 Benadryl - PO 50 mg HSMR1 PRN Administration INSOMNIA Eucalyptus/Menthol/Phenol/Sorbitol 1 each 05/26/16 19:42 06/01/16 06:26 Cepastat Lozenge - MM 1 each Q4H PRN Administration SORE THROAT Fluoxetine HCl 10 mg 05/30/16 10:00 06/14/16 09:44 Prozac - PO 10 mg DAILY VERONICA Administration Gabapentin 300 mg 06/01/16 14:00 06/15/16 06:15 Neurontin - PO 300 mg TID VERONICA Administration Guaifenesin 10 ml 05/26/16 19:42 06/02/16 06:32 Robitussin Dm - PO 10 ml Q6H PRN Administration COUGH Hydroxyzine Pamoate 50 mg 05/26/16 19:42 06/14/16 21:37 Vistaril - PO 50 mg Q4H PRN Administration AGITATION Ibuprofen 600 mg 06/06/16 13:44 06/14/16 21:37 Motrin - PO 600 mg Q6H PRN Administration SEVERE PAIN Lidocaine 1 patch 05/27/16 10:00 06/14/16 09:45 Lidoderm Patch - TP 1 patch DAILY VERONICA Administration Loperamide HCl 4 mg 05/26/16 19:42 Imodium - PO Q6H PRN DIARRHEA Magnesium Citrate 300 ml 05/26/16 19:42 Citroma - PO Q48H PRN CONSTIPATION Magnesium Hydroxide 30 ml 05/26/16 19:42 Milk Of Magnesia - PO DAILY PRN CONSTIPATION Metformin HCl 500 mg 05/27/16 07:00 06/15/16 06:15 Glucophage - PO 500 mg ACBK VERONICA Administration Metformin HCl 500 mg 05/26/16 23:45 06/14/16 21:37 Glucophage - PO 500 mg HS VERONICA Administration Multivit/Folic Acid/Iron 1 tab 05/27/16 10:00 06/14/16 09:44 Vitamins ([facility]) - PO 1 tab DAILY VERONICA Administration Pseudoephedrine/Triprolidine 1 combo 05/26/16 19:42 06/04/16 10:17 Actifed - PO 1 combo TID PRN Administration NASAL CONGESTION Quetiapine Fumarate 50 mg 06/01/16 22:00 06/14/16 21:37 Seroquel - PO 50 mg HS VERONICA Administration Thiamine HCl 100 mg 05/26/16 22:00 06/14/16 21:36 Vitamin B1 - PO 100 mg HS VERONICA Administration Current Side Effect: No Lab tests ordered: No Lab tests reviewed: Yes Provider note:: Patient has [id number] today his treatment and met his goals will continue to address his issues in outpatient setting and as residence he will stay at [facility]. Patient reportes that he learned a lot throught this treatment, verbalized his resolution to stay sober and adherent to every steps of his outpatien treatment plan. Patient continues finding Prozac and Seroquel effective in terms of mood stabilization, sleep improvement , scripts provided, patient was encouraged to utilize all supports to prevent relapses, patient is stable for discharge today. Total face to face time:: 35 Mental Status Exam - Mental Status Exam Alert and Oriented to: Time, Place, Person Cognitive Function: Good Patient Appearance: Well Groomed Mood: Hopeful Affect: Appropriate, Mood Congruent Patient Behavior: Appropriate, Cooperative Speech Pattern: Clear, Appropriate Voice Loudness: Normal Thought Process: Intact, Goal Oriented Thought Disorder: Not Present Hallucinations: Denies Suicidal Ideation: Denies Homicidal Ideation: Denies Insight/Judgement: Fair Sleep: Well Appetite: Good Muscle strength/Tone: Normal Gait/Station: Normal Psychiatric Treatment Plan - Problem List (1) Alcohol dependence Current Visit: No (2) Opioid dependence Current Visit: No (3) MDD (major depressive disorder), recurrent episode Current Visit: Yes (4) Bereavement Current Visit: Yes
[2016-06-15] MEDS: FLUoxetine HCL 10 MG CAPSULE (FP) PO SCH (09:56)
[2016-06-15] MEDS: PRENATAL VITAMINS W/ FOLIC ACID TABLET (FP) PO SCH (09:56)
[2016-06-15] MEDS: amLODIPine BESYLATE 5 MG TABLET (FP) PO SCH (09:57)
[2016-06-15] MEDS: IBUPROFEN 600 MG TABLET (FP) PO PRN (09:57)
[2016-06-15] MEDS: LIDOCAINE 5% TOPICAL PATCH TP SCH (10:06)
== END 2016-06-15 10:15 | disposition home or self-care (01) | DRG 772 ==
LOC: YASAS 13:43 → Y5N 18:00
PROVIDERS: ADMIT Psychiatry & Neurology Psychiatry; ATTEND Psychiatry & Neurology Psychiatry
PROC: HZ42ZZZ Group Counseling for Substance Abuse Treatment, Cognitive-Behavioral (ICD-10-PCS; principal; 2016-05-26)
DX: F11.20 Opioid dependence, uncomplicated (principal); F10.20 Alcohol dependence, uncomplicated; F17.210 Nicotine dependence, cigarettes, uncomplicated; F33.9 Major depressive disorder, recurrent, unspecified; F41.9 Anxiety disorder, unspecified; I10 Essential (primary) hypertension; E11.3299 Type 2 diabetes mellitus with mild nonproliferative diabetic retinopathy without macular edema, unspecified eye; R76.11 Nonspecific reaction to tuberculin skin test without active tuberculosis; M54.42 Lumbago with sciatica, left side; G89.29 Other chronic pain; R26.2 Difficulty in walking, not elsewhere classified; M25.562 Pain in left knee; G47.00 Insomnia, unspecified; Z63.4 Disappearance and death of family member; Z91.14 Patient's other noncompliance with medication regimen
CPT/HCPCS: 36415; 80053; 81003; 85027; 86593; 93005; 93010

== ENCOUNTER 2016-10-23 18:55 | Inpatient (IN) | payer OTHER ==
[2016-10-23 20:16] VITALS: BMI 33.0
--- NOTE | 2016-10-23 22:00 | HP ---
Admission [facility] Chief Complaint: Seeking rehab services Allergies/Adverse Reactions: Allergies Allergy/AdvReac Type Severity Reaction Status Date / Time Fish Containing Products Allergy Severe Hives Verified 10/23/16 21:47 enalapril [Enalapril] Allergy Intermediate MOUTH Verified 10/23/16 21:47 SWELLING (ENALAPRIL SUSPECTED) Pork/Porcine Containing Allergy Unknown "NO PORK" Verified 10/23/16 21:47 Products History of Present Illness: 55 y.o. man with a history of heroin and alcohol dependence is seeking rehab services. He reports he completed detox at [facility] and was discharged on . Reports he has a 5 year of drug and alcohol abstinence. Exam Limitations: No Limitations - Ebola screening Have you traveled outside of the country in the last 21 days: No (N) Have you had contact with anyone from an Ebola affected area: No Have you been sick,other than usual withdrawal symptoms: No Do you have a fever: No - Review of Systems Constitutional: No Symptoms Reported EENT: reports: Blurred Vision Respiratory: reports: No Symptoms reported Cardiac: reports: No Symptoms Reported GI: reports: No Symptoms Reported : reports: No Symptoms Reported Musculoskeletal: reports: Back Pain Integumentary: reports: No Symptoms Reported Neuro: reports: No Symptoms reported Endocrine: reports: No Symptoms Reported Hematology: reports: No Symptoms Reported Psychiatric: reports: Orientated x3, Depressed Other Systems: Reviewed and Negative Patient History - Patient Medical History Hx Anemia: No Hx Asthma: No Hx Chronic Obstructive Pulmonary Disease (COPD): No Hx Cancer: No Hx Cardiac Disorders: No Hx Congestive Heart Failure: No Hx Hypertension: Yes Hx Hypercholesterolemia: No Hx Pacemaker: No HX Cerebrovascular Accident: No Hx Seizures: No Hx Dementia: No Hx Diabetes: Yes Hx Gastrointestinal Disorders: No Hx Liver Disease: No Hx Genitourinary Disorders: No Hx Sexually Transmitted Disorders: No Hx Renal Disease (ESRD): No Hx Thyroid Disease: No Hx Human Immunodeficiency Virus (HIV): No Hx Hepatitis C: No Hx Depression: Yes Hx Suicide Attempt: No Hx Bipolar Disorder: No Hx Schizophrenia: No - Patient Surgical History Past Surgical History: No Hx Neurologic Surgery: No Hx Cataract Extraction: No Hx Cardiac Surgery: No Hx Lung Surgery: No Hx Breast Surgery: No Hx Breast Biopsy: No Hx Abdominal Surgery: No Hx Appendectomy: No Hx Cholecystectomy: No Hx Genitourinary Surgery: No Hx Section: No Hx Orthopedic Surgery: No Anesthesia Reaction: No - PPD History Date: 02/19/16 Results: CXR 2013 PPD to be Administered?: No - Smoking Cessation Smoking history: Current every day smoker Have you smoked in the past 12 months: Yes Aproximately how many cigarettes per day: 6 Cigars Per Day: 0 Hx Chewing Tobacco Use: No Initiated information on smoking cessation: Yes 'Breaking Loose' booklet given: 10/23/16 - Substance & Tx. History Hx Alcohol Use: Yes Hx Substance Use: Yes Substance Use Type: Alcohol, Heroin Hx Substance Use Treatment: Yes ([facility] 10/21/16; REHAB 06/15/2016) - Substances Abused Alcohol Route: Oral Frequency: Daily Amount used: 1 SHOT OF LIQUOR AND 6 PACK OF BEER Age of first use: 19 Date of Last Use: 10/16/16 Heroin Route: Inhalation Frequency: Daily Amount used: 1-2 BAGS Age of first use: 29 Date of Last Use: 10/16/16 Family Disease History - Family Disease History Family Disease History: Diabetes: Brother, Other: Father (), Mother ( ), Sister () Admission Physical Exam [facility] - Vital Signs Vital Signs: Vital Signs - 24 hr 10/23/16 20:14 Temperature 97.9 F Pulse Rate 93 H Respiratory 18 Rate Blood Pressure 138/87 - Physical General Appearance: Yes: No Apparent Distress HEENTM: Yes: Hearing grossly Normal, Normal ENT Inspection, Normocephalic Respiratory: Yes: Chest Non-Tender, Lungs Clear, Normal Breath Sounds, No Respiratory Distress, No Accessory Muscle Use Neck: Yes: Within Normal Limits Breast: Yes: Breast Exam Deferred Cardiology: Yes: Regular Rhythm, Regular Rate Abdominal: Yes: Normal Bowel Sounds, Non Tender, Flat, Soft Genitourinary: Yes: Other (NO COMPLAINTS REPORT) Back: Yes: Normal Inspection Musculoskeletal: Yes: Back pain Extremities: Yes: Normal Capillary Refill, Normal Inspection, Normal Range of Motion, Non-Tender Neurological: Yes: recruit instructor II-XII NML intact, Fully Oriented, Alert, Normal Mood/ Affect, Normal Response Integumentary: Yes: Normal Color, Dry, Warm Lymphatic: Yes: Within Normal Limits - Diagnostic (1) Cannabis dependence Current Visit: Yes Status: Chronic (2) Cocaine dependence Current Visit: Yes Status: Chronic (3) Essential hypertension Current Visit: Yes Status: Chronic (4) Alcohol dependence with uncomplicated withdrawal Current Visit: Yes Status: Chronic (5) Diabetes mellitus type II, controlled Current Visit: Yes Status: Chronic Qualifiers: Diabetes mellitus complication status: with ophthalmic complications Diabetes mellitus complication detail: with diabetic retinopathy Diabetic retinopathy severity: with mild nonproliferative retinopathy Diabetes mellitus macular edema: without macular edema Diabetes mellitus custodial insulin use: without extermination inspector use (6) Nicotine dependence Current Visit: Yes Status: Chronic Qualifiers: Nicotine product type: cigarettes Substance use status: in withdrawal Qualified Code(s): F17.213 - Nicotine dependence, cigarettes, with withdrawal Cleared for Admission [facility] - Detox or Rehab [facility] Level of Care: Observation Bed Claeared for Rehab Admission: Yes [facility] Breath Alcohol Content Breath Alcohol Content: 0 Urine Drug Screen - Results Drug Screen Negative: No Urine Drug Screen Results: BZO-Benzodiazepines, MTD-Methadone
[2016-10-23] MEDS ORDERED: hydrOXYzine PAMOATE 50 MG CAPSULE (FP) PO PRN (22:12)
[2016-10-23] MEDS ORDERED: P-EPHED 60MG/TRIPROLIDI 2.5MG TABLET PO PRN (22:12)
[2016-10-23] MEDS ORDERED: IBUPROFEN 400 MG TABLET (FP) PO PRN (22:12)
[2016-10-23] MEDS ORDERED: MAGNESIUM CITRATE 300 ML BOTTLE PO PRN (22:12)
[2016-10-23] MEDS ORDERED: MAGNESIUM HYDROX 2400MG/30ML ORAL SUSPENSION 30 ML CUP PO PRN (22:12)
[2016-10-23] MEDS ORDERED: LOPERAMIDE HCL 2 MG CAPSULE PO PRN (22:12)
[2016-10-23] MEDS ORDERED: MAG HYDROX/AL HYDROX/SIMETH 30 ML UNIT-DOSE CUP PO PRN (22:12)
[2016-10-23] MEDS ORDERED: MENTHOL/PHENOL 1 EACH UD MM PRN (22:12)
[2016-10-23] MEDS ORDERED: guaiFENesin/D-METHORPHAN HB 10 ML UNIT-DOSE CUPS PO PRN (22:12)
[2016-10-23] MEDS ORDERED: ACETAMINOPHEN 325 MG TABLET (FP) PO PRN (22:12)
[2016-10-24] MEDS: cloNIDine HCL 0.1 MG TABLET PO PRN (00:10)
--- NOTE | 2016-10-24 07:45 | HP ---
Psychiatrist Admission - Data Date of interview: 10/24/16 Admission source: [facility] Identifying data: This is the second inpatient rehabilitation admission for this 55 year old black male father of 3, who is currently unemployed and residing in his brother's studio apartment. Medical History: HTN, DM type II, chronic lower back pain and left sciatic nerve pain, smokes cigarettes 6-8 a day. Psychiatric History: Patient reports he was under the treatment for depression and anxiety while at rehabilitation treatment program on 06/09, was on Prozac 10 mg po daily, Gabapentin 300 mg po tid and Seroquel 50 mg po hs. was on Neurontin for his back pain which helped him with his anxiety, patient reports that last year he lost a lot of family members: his parents, sister, and g/f, was in therapy for his losses. Physical/Sexual Abuse/Trauma History: Denies history of sexual, physical and verbal abuse. Vital Signs: Vital Signs - 24 hr 10/23/16 10/24/16 10/24/16 20:14 03:30 06:42 Temperature 97.9 F 98.0 F Pulse Rate 93 H 73 Respiratory 18 18 18 Rate Blood Pressure 138/87 134/90 Allergies/Adverse Reactions: Allergies Allergy/AdvReac Type Severity Reaction Status Date / Time Fish Containing Products Allergy Severe Hives Verified 10/23/16 21:47 enalapril [Enalapril] Allergy Intermediate MOUTH Verified 10/23/16 21:47 SWELLING (ENALAPRIL SUSPECTED) Pork/Porcine Containing Allergy Unknown "NO PORK" Verified 10/23/16 21:47 Products Date of last physical exam: 10/23/16 Concur with the findings of this exam: Yes - Substance Abuse/Tx History Hx Alcohol Use: Yes (started drinking at age of 19, daily obe shot of liquor and 6 pks of beer) Hx Substance Use: Yes Substance Use Type: Heroin (started at age of 29, daily 1-2 bags.) Hx Substance Use Treatment: Yes - Admission Criteria Previous failed treatment: Yes Poor recovery environment: Yes Comorbidities: Yes Lacks judgement: Yes Mental Status Exam - Mental Status Exam Alert and Oriented to: Time, Place, Person Cognitive Function: Good Patient Appearance: Well Groomed Mood: Anxious, Hopeful Affect: Appropriate, Mood Congruent Patient Behavior: Appropriate, Cooperative Speech Pattern: Clear, Appropriate Voice Loudness: Normal Thought Process: Intact, Goal Oriented Thought Disorder: Not Present Hallucinations: Denies Suicidal Ideation: Denies Homicidal Ideation: Denies Insight/Judgement: Fair Sleep: Fair Appetite: Fair Muscle strength/Tone: Normal Gait/Station: Normal Psychiatric Findings - Problem List ([place] 1, 2,3) (1) Cannabis dependence Current Visit: Yes Status: Chronic (2) Cocaine dependence Current Visit: Yes Status: Chronic (3) MDD (major depressive disorder), recurrent episode Current Visit: No Status: Acute - Initial Treatment Plan Initial Treatment Plan: Will restart Gabapentin 300 mg po tid and Seroquel 25 mg po hs, monitor progress as needed.
[2016-10-24 10:35] LABS: MCH 31.1 pg (25.7-33.7); MCHC 32.8 g/dl (32.0-35.9); MEAN CELL VOLUME 94.8 fl (80-96); MEAN PLT VOLUME 10.4 fl (7.5-11.1); PLATELET COUNT 93 K/MM3 (134-434); RDW 16.1 % (11.9-15.9); WHITE BLOOD COUNT 4.1 K/mm3 (4.0-10.0)
[2016-10-24] MEDS: amLODIPine BESYLATE 5 MG TABLET (FP) PO SCH (11:08)
[2016-10-24] MEDS: PRENATAL VITAMINS W/ FOLIC ACID TABLET (FP) PO SCH (11:08)
[2016-10-24] MEDS: ASPIRIN COATED 81 MG TABLET.EC PO SCH (11:08)
[2016-10-24] MEDS: PATIENT'S OWN MEDICATION (NON-FORMULARY) (Omeprazole 20 MG) PO SCH (11:33)
[2016-10-24 11:45] LABS: ALBUMIN 4.3 g/dl (3.4-5.0); ANION GAP 9 (8-16); CALCIUM 9.2 mg/dL (8.5-10.1); CO2 28 mmol/L (21-32); GLUCOSE,RANDOM 97 mg/dL (74-106); SGPT/ALT 33 U/L (12-78)
[2016-10-24 11:47] LABS: ALK PHOS 116 U/L (45-117); BILIRUBIN,TOTAL 0.5 mg/dL (0.2-1.0); CREATININE 1.1 mg/dL (0.7-1.3); SGOT/AST 27 U/L (15-37); TOT PROT 7.7 g/dl (6.4-8.2)
--- NOTE | 2016-10-24 14:04 | EKG ---
Test Reason : Blood Pressure : / mmHG Vent. Rate : 105 BPM Atrial Rate : 105 BPM P-R Int : 134 ms QRS Dur : 084 ms QT Int : 340 ms P-R-T Axes : 067 -18 049 degrees QTc Int : 449 ms SINUS TACHYCARDIA POSSIBLE LEFT ATRIAL ENLARGEMENT BORDERLINE ECG WHEN COMPARED WITH ECG OF 26-MAY-2016 23:02, NO SIGNIFICANT CHANGE WAS FOUND Confirmed by DAPHNIE BEST MD ([id number]) on 10/24/2016 2:04:12 PM Referred By: Alisson Givens Confirmed By:DAPHNIE BEST MD
[2016-10-24] MEDS: GABAPENTIN 300 MG CAPSULE (FP) PO SCH (22:00)
[2016-10-24] MEDS: QUEtiapine FUMARATE 25 MG TABLET (FP) PO SCH (22:00)
[2016-10-24] MEDS: THIAMINE HCL 100 MG TABLET (FP) PO SCH (22:00)
[2016-10-25] MEDS: GABAPENTIN 300 MG CAPSULE (FP) PO SCH ×3 (06:08→21:53)
[2016-10-25] MEDS: amLODIPine BESYLATE 5 MG TABLET (FP) PO SCH (10:25)
[2016-10-25] MEDS: PATIENT'S OWN MEDICATION (NON-FORMULARY) (Omeprazole 20 MG) PO SCH (10:25)
[2016-10-25] MEDS: ASPIRIN COATED 81 MG TABLET.EC PO SCH (10:25)
[2016-10-25] MEDS: PRENATAL VITAMINS W/ FOLIC ACID TABLET (FP) PO SCH (10:25)
[2016-10-25] MEDS: IBUPROFEN 400 MG TABLET (FP) PO PRN (14:24)
[2016-10-25] MEDS: THIAMINE HCL 100 MG TABLET (FP) PO SCH (21:53)
[2016-10-25] MEDS: QUEtiapine FUMARATE 25 MG TABLET (FP) PO SCH (21:53)
[2016-10-26] MEDS: GABAPENTIN 300 MG CAPSULE (FP) PO SCH ×3 (06:07→21:49)
[2016-10-26] MEDS: amLODIPine BESYLATE 5 MG TABLET (FP) PO SCH (10:28)
[2016-10-26] MEDS: PATIENT'S OWN MEDICATION (NON-FORMULARY) (Omeprazole 20 MG) PO SCH (10:28)
[2016-10-26] MEDS: PRENATAL VITAMINS W/ FOLIC ACID TABLET (FP) PO SCH (10:28)
[2016-10-26] MEDS: ASPIRIN COATED 81 MG TABLET.EC PO SCH (10:28)
[2016-10-26] MEDS: IBUPROFEN 400 MG TABLET (FP) PO PRN ×2 (10:29→21:49)
[2016-10-26] MEDS: QUEtiapine FUMARATE 25 MG TABLET (FP) PO SCH (21:49)
[2016-10-26] MEDS: THIAMINE HCL 100 MG TABLET (FP) PO SCH (21:49)
[2016-10-27] MEDS: GABAPENTIN 300 MG CAPSULE (FP) PO SCH ×3 (06:09→21:57)
[2016-10-27] MEDS: ASPIRIN COATED 81 MG TABLET.EC PO SCH (10:07)
[2016-10-27] MEDS: amLODIPine BESYLATE 5 MG TABLET (FP) PO SCH (10:07)
[2016-10-27] MEDS: PRENATAL VITAMINS W/ FOLIC ACID TABLET (FP) PO SCH (10:07)
[2016-10-27] MEDS ORDERED: cloNIDine HCL 0.1 MG TABLET ONE (10:08)
[2016-10-27] MEDS: cloNIDine HCL 0.1 MG TABLET PO PRN (10:09)
[2016-10-27] MEDS: PATIENT'S OWN MEDICATION (NON-FORMULARY) (Omeprazole 20 MG) PO SCH (10:09)
[2016-10-27] MEDS: IBUPROFEN 400 MG TABLET (FP) PO PRN ×2 (10:10→19:31)
[2016-10-27] MEDS: QUEtiapine FUMARATE 25 MG TABLET (FP) PO SCH (21:57)
[2016-10-27] MEDS: THIAMINE HCL 100 MG TABLET (FP) PO SCH (21:57)
[2016-10-28] MEDS: IBUPROFEN 400 MG TABLET (FP) PO PRN ×3 (06:24→23:29)
[2016-10-28] MEDS: GABAPENTIN 300 MG CAPSULE (FP) PO SCH ×3 (06:24→21:55)
[2016-10-28] MEDS: PRENATAL VITAMINS W/ FOLIC ACID TABLET (FP) PO SCH (10:29)
[2016-10-28] MEDS: amLODIPine BESYLATE 5 MG TABLET (FP) PO SCH (10:29)
[2016-10-28] MEDS: ASPIRIN COATED 81 MG TABLET.EC PO SCH (10:29)
[2016-10-28] MEDS: PATIENT'S OWN MEDICATION (NON-FORMULARY) (Omeprazole 20 MG) PO SCH (10:30)
[2016-10-28] MEDS: cloNIDine HCL 0.1 MG TABLET PO PRN (10:32)
[2016-10-28] MEDS: QUEtiapine FUMARATE 25 MG TABLET (FP) PO SCH (21:55)
[2016-10-28] MEDS: diphenhydrAMINE HCL 50 MG CAPSULE PO PRN (21:56)
[2016-10-28] MEDS: THIAMINE HCL 100 MG TABLET (FP) PO SCH (23:08)
[2016-10-29] MEDS: GABAPENTIN 300 MG CAPSULE (FP) PO SCH ×3 (06:13→21:45)
[2016-10-29] MEDS: IBUPROFEN 400 MG TABLET (FP) PO PRN ×2 (06:13→14:30)
[2016-10-29] MEDS: ASPIRIN COATED 81 MG TABLET.EC PO SCH (10:48)
[2016-10-29] MEDS: PRENATAL VITAMINS W/ FOLIC ACID TABLET (FP) PO SCH (10:48)
[2016-10-29] MEDS: PATIENT'S OWN MEDICATION (NON-FORMULARY) (Omeprazole 20 MG) PO SCH (10:48)
[2016-10-29] MEDS: cloNIDine HCL 0.1 MG TABLET PO PRN (10:48)
[2016-10-29] MEDS: amLODIPine BESYLATE 5 MG TABLET (FP) PO SCH (10:48)
[2016-10-29] MEDS: THIAMINE HCL 100 MG TABLET (FP) PO SCH (21:45)
[2016-10-29] MEDS: QUEtiapine FUMARATE 25 MG TABLET (FP) PO SCH (21:45)
[2016-10-29] MEDS: diphenhydrAMINE HCL 50 MG CAPSULE PO PRN (21:46)
[2016-10-30] MEDS: GABAPENTIN 300 MG CAPSULE (FP) PO SCH ×3 (06:07→21:43)
[2016-10-30] MEDS: IBUPROFEN 400 MG TABLET (FP) PO PRN ×2 (06:07→14:14)
[2016-10-30] MEDS: amLODIPine BESYLATE 5 MG TABLET (FP) PO SCH (10:33)
[2016-10-30] MEDS: PATIENT'S OWN MEDICATION (NON-FORMULARY) (Omeprazole 20 MG) PO SCH (10:33)
[2016-10-30] MEDS: PRENATAL VITAMINS W/ FOLIC ACID TABLET (FP) PO SCH (10:33)
[2016-10-30] MEDS: ASPIRIN COATED 81 MG TABLET.EC PO SCH (10:33)
[2016-10-30] MEDS: cloNIDine HCL 0.1 MG TABLET PO PRN (10:34)
[2016-10-30] MEDS: diphenhydrAMINE HCL 50 MG CAPSULE PO PRN (21:43)
[2016-10-30] MEDS: THIAMINE HCL 100 MG TABLET (FP) PO SCH (21:43)
[2016-10-30] MEDS: QUEtiapine FUMARATE 25 MG TABLET (FP) PO SCH (21:43)
[2016-10-31] MEDS: IBUPROFEN 400 MG TABLET (FP) PO PRN ×2 (06:02→14:13)
[2016-10-31] MEDS: cloNIDine HCL 0.1 MG TABLET PO PRN (06:02)
[2016-10-31] MEDS: GABAPENTIN 300 MG CAPSULE (FP) PO SCH ×3 (06:02→21:48)
[2016-10-31] MEDS: amLODIPine BESYLATE 5 MG TABLET (FP) PO SCH (10:40)
[2016-10-31] MEDS: ASPIRIN COATED 81 MG TABLET.EC PO SCH (10:40)
[2016-10-31] MEDS: PATIENT'S OWN MEDICATION (NON-FORMULARY) (Omeprazole 20 MG) PO SCH (10:40)
[2016-10-31] MEDS: PRENATAL VITAMINS W/ FOLIC ACID TABLET (FP) PO SCH (10:40)
[2016-10-31] MEDS: THIAMINE HCL 100 MG TABLET (FP) PO SCH (21:48)
[2016-10-31] MEDS: QUEtiapine FUMARATE 25 MG TABLET (FP) PO SCH (21:48)
[2016-10-31] MEDS: diphenhydrAMINE HCL 50 MG CAPSULE PO PRN (22:00)
[2016-11-01] MEDS: cloNIDine HCL 0.1 MG TABLET PO PRN (06:28)
[2016-11-01] MEDS: GABAPENTIN 300 MG CAPSULE (FP) PO SCH ×3 (06:28→21:54)
[2016-11-01] MEDS: IBUPROFEN 400 MG TABLET (FP) PO PRN (06:28)
[2016-11-01] MEDS: PATIENT'S OWN MEDICATION (NON-FORMULARY) (Omeprazole 20 MG) PO SCH (10:59)
[2016-11-01] MEDS: ASPIRIN COATED 81 MG TABLET.EC PO SCH (10:59)
[2016-11-01] MEDS: PRENATAL VITAMINS W/ FOLIC ACID TABLET (FP) PO SCH (10:59)
[2016-11-01] MEDS: amLODIPine BESYLATE 5 MG TABLET (FP) PO SCH (10:59)
[2016-11-01] MEDS: diphenhydrAMINE HCL 50 MG CAPSULE PO PRN (21:54)
[2016-11-01] MEDS: THIAMINE HCL 100 MG TABLET (FP) PO SCH (21:54)
[2016-11-01] MEDS: QUEtiapine FUMARATE 25 MG TABLET (FP) PO SCH (21:54)
[2016-11-02] MEDS: cloNIDine HCL 0.1 MG TABLET PO PRN (06:11)
[2016-11-02] MEDS: IBUPROFEN 400 MG TABLET (FP) PO PRN (06:11)
[2016-11-02] MEDS: GABAPENTIN 300 MG CAPSULE (FP) PO SCH ×3 (06:11→21:15)
--- NOTE | 2016-11-02 08:01 | PN ---
Psychiatric Progress Note Vital Signs: Vital Signs Period Temp Pulse Resp BP Sys/[place] Pulse Ox Last 24 Hr 98.0 F 82 18-18 132/102 Date of Session: 11/02/16 Chief Complaint:: insomnia HPI: Patient is addressing cocaine,cannabis dependence comorbid MDD. ROS: WNL Current Medications: Active Medications Generic Name Dose Route Start Last Admin Trade Name Freq PRN Reason Stop Dose Admin Acetaminophen 650 mg 10/23/16 22:12 10/30/16 10:34 Tylenol - PO 650 mg Q4H PRN Administration PAIN Al Hydroxide/Mg Hydroxide 30 ml 10/23/16 22:12 Mylanta Oral Suspension - PO Q6H PRN DYSPEPSIA Amlodipine Besylate 5 mg 10/24/16 10:00 11/01/16 10:59 Norvasc - PO 5 mg DAILY VERONICA Administration Aspirin 81 mg 10/24/16 10:00 11/01/16 10:59 Ecotrin - PO 81 mg DAILY VERONICA Administration Clonidine 0.1 mg 10/23/16 22:15 11/02/16 06:11 Catapres - PO 0.1 mg BID PRN Administration HYPERTENSION Diphenhydramine HCl 50 mg 10/23/16 22:12 11/01/16 21:54 Benadryl - PO 50 mg HSMR1 PRN Administration INSOMNIA Eucalyptus/Menthol/Phenol/Sorbitol 1 each 10/23/16 22:12 Cepastat Lozenge - MM Q4H PRN SORE THROAT Gabapentin 300 mg 10/24/16 22:00 11/02/16 06:11 Neurontin - PO 300 mg TID VERONICA Administration Guaifenesin 10 ml 10/23/16 22:12 Robitussin Dm - PO Q6H PRN COUGH Hydroxyzine Pamoate 50 mg 10/23/16 22:12 10/24/16 00:11 Vistaril - PO 50 mg Q4H PRN Administration AGITATION Ibuprofen 800 mg 10/25/16 11:13 11/02/16 06:11 Motrin - PO 800 mg Q8H PRN Administration PAIN Loperamide HCl 4 mg 10/23/16 22:12 Imodium - PO Q6H PRN DIARRHEA Magnesium Citrate 300 ml 10/23/16 22:12 Citroma - PO Q48H PRN CONSTIPATION Magnesium Hydroxide 30 ml 10/23/16 22:12 Milk Of Magnesia - PO DAILY PRN CONSTIPATION Metformin HCl 500 mg 10/24/16 07:00 11/02/16 06:11 Glucophage Xr - PO 500 mg DAILY@0700 VERONICA Administration Non-Formulary Medication 20 mg 10/24/16 10:00 11/01/16 10:59 Omeprazole PO 20 mg DAILY VERONICA Administration Multivit/Folic Acid/Iron 1 tab 10/24/16 10:00 11/01/16 10:59 Vitamins (Sjr) - PO 1 tab DAILY VERONICA Administration Pseudoephedrine/Triprolidine 1 combo 10/23/16 22:12 Actifed - PO TID PRN NASAL CONGESTION Quetiapine Fumarate 50 mg 11/02/16 07:52 Seroquel - PO HS VERONICA Thiamine HCl 100 mg 10/24/16 22:00 11/01/16 21:54 Vitamin B1 - PO 100 mg HS VERONICA Administration Current Side Effect: No Lab tests ordered: No Lab tests reviewed: Yes Provider note:: Patient adjusted to the unit he attends groups and involved in groups discussion. Patient reports he is unable to sleep well, thinking a lot and getting anxious, reviewed his curent medications, will increase Seroquel 50 mg po hs, continue to monitor progress as needed. Total face to face time:: 15 Mental Status Exam - Mental Status Exam Alert and Oriented to: Time, Place, Person Cognitive Function: Good Patient Appearance: Well Groomed Mood: Sad, Anxious Affect: Appropriate, Mood Congruent Patient Behavior: Appropriate, Cooperative Speech Pattern: Clear, Appropriate Voice Loudness: Normal Thought Process: Intact, Goal Oriented Thought Disorder: Not Present Hallucinations: Denies Suicidal Ideation: Denies Homicidal Ideation: Denies Insight/Judgement: Fair Sleep: Fair Appetite: Fair Muscle strength/Tone: Normal Gait/Station: Normal Psychiatric Treatment Plan - Problem List (1) Cannabis dependence Current Visit: Yes (2) Cocaine dependence Current Visit: Yes (3) MDD (major depressive disorder), recurrent episode Current Visit: No
[2016-11-02] MEDS: ASPIRIN COATED 81 MG TABLET.EC PO SCH (10:42)
[2016-11-02] MEDS: PATIENT'S OWN MEDICATION (NON-FORMULARY) (Omeprazole 20 MG) PO SCH (10:42)
[2016-11-02] MEDS: PRENATAL VITAMINS W/ FOLIC ACID TABLET (FP) PO SCH (10:42)
[2016-11-02] MEDS: amLODIPine BESYLATE 5 MG TABLET (FP) PO SCH (10:42)
[2016-11-02] MEDS: THIAMINE HCL 100 MG TABLET (FP) PO SCH (21:15)
[2016-11-02] MEDS: QUEtiapine FUMARATE 50 MG TABLET PO SCH (21:15)
[2016-11-03] MEDS: GABAPENTIN 300 MG CAPSULE (FP) PO SCH ×3 (06:04→21:40)
[2016-11-03] MEDS: IBUPROFEN 400 MG TABLET (FP) PO PRN (06:04)
[2016-11-03] MEDS: ASPIRIN COATED 81 MG TABLET.EC PO SCH (10:15)
[2016-11-03] MEDS: PATIENT'S OWN MEDICATION (NON-FORMULARY) (Omeprazole 20 MG) PO SCH (10:15)
[2016-11-03] MEDS: PRENATAL VITAMINS W/ FOLIC ACID TABLET (FP) PO SCH (10:15)
[2016-11-03] MEDS: amLODIPine BESYLATE 5 MG TABLET (FP) PO SCH (10:15)
[2016-11-03] MEDS: THIAMINE HCL 100 MG TABLET (FP) PO SCH (21:40)
[2016-11-03] MEDS: QUEtiapine FUMARATE 50 MG TABLET PO SCH (21:40)
[2016-11-04] MEDS: GABAPENTIN 300 MG CAPSULE (FP) PO SCH ×3 (06:33→21:47)
[2016-11-04] MEDS: IBUPROFEN 400 MG TABLET (FP) PO PRN (06:33)
[2016-11-04] MEDS: PATIENT'S OWN MEDICATION (NON-FORMULARY) (Omeprazole 20 MG) PO SCH (10:16)
[2016-11-04] MEDS: ASPIRIN COATED 81 MG TABLET.EC PO SCH (10:16)
[2016-11-04] MEDS: amLODIPine BESYLATE 5 MG TABLET (FP) PO SCH (10:16)
[2016-11-04] MEDS: PRENATAL VITAMINS W/ FOLIC ACID TABLET (FP) PO SCH (10:16)
[2016-11-04] MEDS: cloNIDine HCL 0.1 MG TABLET PO PRN (10:18)
[2016-11-04] MEDS: THIAMINE HCL 100 MG TABLET (FP) PO SCH (21:47)
[2016-11-04] MEDS: QUEtiapine FUMARATE 50 MG TABLET PO SCH (21:47)
[2016-11-05] MEDS: IBUPROFEN 400 MG TABLET (FP) PO PRN (06:30)
[2016-11-05] MEDS: GABAPENTIN 300 MG CAPSULE (FP) PO SCH ×3 (06:30→21:40)
[2016-11-05] MEDS: ASPIRIN COATED 81 MG TABLET.EC PO SCH (09:52)
[2016-11-05] MEDS: amLODIPine BESYLATE 5 MG TABLET (FP) PO SCH (09:52)
[2016-11-05] MEDS: PRENATAL VITAMINS W/ FOLIC ACID TABLET (FP) PO SCH (09:52)
[2016-11-05] MEDS: PATIENT'S OWN MEDICATION (NON-FORMULARY) (Omeprazole 20 MG) PO SCH (09:52)
[2016-11-05] MEDS: THIAMINE HCL 100 MG TABLET (FP) PO SCH (21:39)
[2016-11-05] MEDS: QUEtiapine FUMARATE 50 MG TABLET PO SCH (21:40)
[2016-11-06] MEDS: IBUPROFEN 400 MG TABLET (FP) PO PRN (06:16)
[2016-11-06] MEDS: GABAPENTIN 300 MG CAPSULE (FP) PO SCH (06:16)
[2016-11-06 07:20] VITALS: BP 126/75; PULSE 96; TEMP 98.1
--- NOTE | 2016-11-06 08:22 | PN ---
Psychiatric Progress Note Vital Signs: Vital Signs Period Temp Pulse Resp BP Sys/[place] Pulse Ox Last 24 Hr 97.5 F-98.1 F 96-105 18-20 113-126/63-75 Date of Session: 11/06/16 Chief Complaint:: Discharge visit HPI: Patient addressed Alcohol,Cocaine and Cannabis dependence comorbid with MDD. ROS: Significant for HTN,DM. Current Medications: Active Medications Generic Name Dose Route Start Last Admin Trade Name Freq PRN Reason Stop Dose Admin Acetaminophen 650 mg 10/23/16 22:12 10/30/16 10:34 Tylenol - PO 650 mg Q4H PRN Administration PAIN Al Hydroxide/Mg Hydroxide 30 ml 10/23/16 22:12 Mylanta Oral Suspension - PO Q6H PRN DYSPEPSIA Amlodipine Besylate 5 mg 10/24/16 10:00 11/05/16 09:52 Norvasc - PO 5 mg DAILY VERONICA Administration Aspirin 81 mg 10/24/16 10:00 11/05/16 09:52 Ecotrin - PO 81 mg DAILY VERONICA Administration Clonidine 0.1 mg 10/23/16 22:15 11/04/16 10:18 Catapres - PO 0.1 mg BID PRN Administration HYPERTENSION Diphenhydramine HCl 50 mg 10/23/16 22:12 11/01/16 21:54 Benadryl - PO 50 mg HSMR1 PRN Administration INSOMNIA Eucalyptus/Menthol/Phenol/Sorbitol 1 each 10/23/16 22:12 Cepastat Lozenge - MM Q4H PRN SORE THROAT Gabapentin 300 mg 10/24/16 22:00 11/06/16 06:16 Neurontin - PO 300 mg TID VERONICA Administration Guaifenesin 10 ml 10/23/16 22:12 Robitussin Dm - PO Q6H PRN COUGH Hydroxyzine Pamoate 50 mg 10/23/16 22:12 10/24/16 00:11 Vistaril - PO 50 mg Q4H PRN Administration AGITATION Ibuprofen 800 mg 10/25/16 11:13 11/06/16 06:16 Motrin - PO 800 mg Q8H PRN Administration PAIN Loperamide HCl 4 mg 10/23/16 22:12 Imodium - PO Q6H PRN DIARRHEA Magnesium Citrate 300 ml 10/23/16 22:12 Citroma - PO Q48H PRN CONSTIPATION Magnesium Hydroxide 30 ml 10/23/16 22:12 Milk Of Magnesia - PO DAILY PRN CONSTIPATION Metformin HCl 500 mg 10/24/16 07:00 11/06/16 06:16 Glucophage Xr - PO 500 mg DAILY@0700 VERNOICA Administration Non-Formulary Medication 20 mg 10/24/16 10:00 11/05/16 09:52 Omeprazole PO 20 mg DAILY VERONICA Administration Multivit/Folic Acid/Iron 1 tab 10/24/16 10:00 11/05/16 09:52 Vitamins (Sjr) - PO 1 tab DAILY VERONICA Administration Pseudoephedrine/Triprolidine 1 combo 10/23/16 22:12 Actifed - PO TID PRN NASAL CONGESTION Quetiapine Fumarate 50 mg 11/02/16 22:00 11/05/16 21:40 Seroquel - PO 50 mg HS VERONICA Administration Thiamine HCl 100 mg 10/24/16 22:00 11/05/16 21:39 Vitamin B1 - PO 100 mg HS VERONICA Administration Current Side Effect: No Lab tests ordered: No Lab tests reviewed: Yes Provider note:: Patient completed this program today.(early discharge).He has partially met his treatment goals and will continue to address his issues on outpatient basis at [facility] Rehabilitation program. Patient continues to find that Neurontin 300 mg po tid and Seroquel 50 mg po hs help to control mood instability,sleeping dificulties,depression,anxiety.Scripts for 30 days supply of the above medications provided. Thrapy provided focusing on relapse prevention,coping skills,suppot utilization to maintain recovery. Patient is stable for discharge today. Total face to face time:: 25 Mental Status Exam - Mental Status Exam Alert and Oriented to: Time, Place, Person Cognitive Function: Grossly Intact Patient Appearance: Well Groomed Mood: Hopeful, Euthymic Affect: Appropriate, Mood Congruent Patient Behavior: Cooperative Speech Pattern: Clear Voice Loudness: Normal Thought Process: Goal Oriented Thought Disorder: Not Present Hallucinations: Denies Suicidal Ideation: Denies Insight/Judgement: Fair Sleep: Fair Appetite: Good Muscle strength/Tone: Normal Gait/Station: Normal Psychiatric Treatment Plan - Problem List (1) Cannabis dependence Current Visit: Yes (2) Cocaine dependence Current Visit: Yes (3) Diabetes mellitus type II, controlled Current Visit: Yes Qualifiers: Diabetes mellitus complication status: with ophthalmic complications Diabetes mellitus complication detail: with diabetic retinopathy Diabetic retinopathy severity: with mild nonproliferative retinopathy Diabetes mellitus macular edema: without macular edema Diabetes mellitus senior living insulin use: without senior living use (4) Essential hypertension Current Visit: Yes (5) Nicotine dependence Current Visit: Yes Qualifiers: Nicotine product type: cigarettes Substance use status: in withdrawal Qualified Code(s): F17.213 - Nicotine dependence, cigarettes, with withdrawal (6) Alcohol dependence Current Visit: No (7) MDD (major depressive disorder) Current Visit: Yes
[2016-11-06] MEDS: PATIENT'S OWN MEDICATION (NON-FORMULARY) (Omeprazole 20 MG) PO SCH (09:57)
[2016-11-06] MEDS: ASPIRIN COATED 81 MG TABLET.EC PO SCH (09:57)
[2016-11-06] MEDS: amLODIPine BESYLATE 5 MG TABLET (FP) PO SCH (09:57)
[2016-11-06] MEDS: PRENATAL VITAMINS W/ FOLIC ACID TABLET (FP) PO SCH (09:58)
== END 2016-11-06 10:30 | disposition home or self-care (01) | DRG 772 ==
LOC: YASAS 18:55 → Y5N 21:36
PROVIDERS: ADMIT Psychiatry & Neurology Psychiatry; ATTEND Psychiatry & Neurology Psychiatry
PROC: HZ42ZZZ Group Counseling for Substance Abuse Treatment, Cognitive-Behavioral (ICD-10-PCS; principal; 2016-10-23)
DX: F10.20 Alcohol dependence, uncomplicated (principal); F14.20 Cocaine dependence, uncomplicated; F12.20 Cannabis dependence, uncomplicated; F17.213 Nicotine dependence, cigarettes, with withdrawal; F33.9 Major depressive disorder, recurrent, unspecified; I10 Essential (primary) hypertension; E11.9 Type 2 diabetes mellitus without complications; Z79.82 Long term (current) use of aspirin; Z79.84 Long term (current) use of oral hypoglycemic drugs; M54.42 Lumbago with sciatica, left side; G89.29 Other chronic pain; Z91.013 Allergy to seafood; Z88.8 Allergy status to other drugs, medicaments and biological substances; Z91.018 Allergy to other foods
CPT/HCPCS: 36415; 71020-TC; 80053; 85027; 86593; 93005; 93010

== ENCOUNTER 2016-12-05 15:09 | Inpatient (IN) | payer OTHER ==
[2016-12-05 18:20] VITALS: BMI 33.0
--- NOTE | 2016-12-05 20:16 | HP ---
COWS - Scale Resting Pulse: 1= [place] 81-100 Sweatin=Flushed/Facial Moisture Restless Observation: 1= Difficult to Sit Still Pupil Size: 1= Pupils >than Normal Bone or Joint Aches: 1= Mild Discomfort Runny Nose/ Eye Tearin= Runny Nose/Eyes GI Upset > 30mins: 2= Nausea/Diarrhea Tremor Observation: 1= Tremor [place], Not Seen Yawning Observation: 1= 1-2x During Session Anxiety or Irritability: 2=Irritable/Anxious Goose Flesh Skin: 0=Smooth Skin COWS Score: 14 CIWA Score - CIWA Score Nausea/Vomitin Muscle Tremors: 2 Anxiety: 2 Agitation: 0-Normal Activity Paroxysmal Sweats: 2 Orientation: 0-Oriented Tacttile Disturbances: 2-Mild Itch/Numbness/Burn Auditory Disturbances: 1-Very Mild Visual Disturbances: 1-Very Mild Sensitivity Headache: 1-Very Mild CIWA-Ar Total Score: 13 Admission [facility] Chief Complaint: WITHDRAWAL SYMPTOMS Allergies/Adverse Reactions: Allergies Allergy/AdvReac Type Severity Reaction Status Date / Time Fish Containing Products Allergy Severe Hives Verified 12/05/16 19:31 enalapril [Enalapril] Allergy Intermediate MOUTH Verified 12/05/16 19:31 SWELLING (ENALAPRIL SUSPECTED) Pork/Porcine Containing Allergy Unknown "NO PORK" Verified 12/05/16 19:31 Products History of Present Illness: 55 Y.O. MAN WITH AN EXTENSIVE HISTORY OF HEROIN AND ALCOHOL DEPENDENCE IS HERE SEEKING DETOX. HE COMPLETED REHAB HERE IN 11/06/16 BUT REPORTS HE COULD NOT SUSTAIN HIS SOBRIETY. HE STATES HIS LONGEST PERIOD CLEAN HAS BEEN 5 YEARS. Exam Limitations: No Limitations - Ebola screening Have you traveled outside of the country in the last 21 days: No Have you had contact with anyone from an Ebola affected area: No Have you been sick,other than usual withdrawal symptoms: No Do you have a fever: No - Review of Systems Constitutional: Chills, Changes in sleep EENT: reports: Blurred Vision, Tearing, Nose Congestion Respiratory: reports: No Symptoms reported Cardiac: reports: No Symptoms Reported GI: reports: Nausea : reports: No Symptoms Reported Musculoskeletal: reports: Back Pain Integumentary: reports: No Symptoms Reported Neuro: reports: Numbness (RIGHT HAND), Tingling (R HAND), Tremors Endocrine: reports: No Symptoms Reported Hematology: reports: No Symptoms Reported Psychiatric: reports: Orientated x3, Depressed Other Systems: Reviewed and Negative Patient History - Patient Medical History Hx Anemia: No Hx Asthma: No Hx Chronic Obstructive Pulmonary Disease (COPD): No Hx Cancer: No Hx Cardiac Disorders: Yes Hx Congestive Heart Failure: No Hx Hypertension: Yes Hx Hypercholesterolemia: No Hx Pacemaker: No HX Cerebrovascular Accident: No Hx Seizures: No Hx Dementia: No Hx Diabetes: Yes Hx Gastrointestinal Disorders: No Hx Liver Disease: No Hx Genitourinary Disorders: No Hx Sexually Transmitted Disorders: No Hx Renal Disease (ESRD): No Hx Thyroid Disease: No Hx Human Immunodeficiency Virus (HIV): No Hx Hepatitis C: No Hx Depression: Yes Hx Suicide Attempt: No Hx Bipolar Disorder: Yes Hx Schizophrenia: No - Patient Surgical History Past Surgical History: No Hx Neurologic Surgery: No Hx Cataract Extraction: No Hx Cardiac Surgery: No Hx Lung Surgery: No Hx Breast Surgery: No Hx Breast Biopsy: No Hx Abdominal Surgery: No Hx Appendectomy: No Hx Cholecystectomy: No Hx Genitourinary Surgery: No Hx Section: No Hx Orthopedic Surgery: No Anesthesia Reaction: No - PPD History Previous Implant?: Yes Documented Results: Positive w/proof Results: CXR 10/24/16 PPD to be Administered?: No - Reproductive History Patient is a Female of Child Bearing Age (11 -55 yrs old): No - Smoking Cessation Smoking history: Current every day smoker Have you smoked in the past 12 months: Yes Aproximately how many cigarettes per day: 10 Cigars Per Day: 0 Hx Chewing Tobacco Use: No Initiated information on smoking cessation: Yes 'Breaking Loose' booklet given: 12/05/16 - Substance & Tx. History Hx Alcohol Use: Yes Hx Substance Use: Yes Substance Use Type: Alcohol, Heroin Hx Substance Use Treatment: Yes (DETX: DOES NOT RECALL MOST RECENT ADMISSION; REHAB: 10/2016) - Substances Abused Alcohol Route: Oral Frequency: Daily Amount used: liquor- 2 pints, beer- 2 six packs Age of first use: 19 Date of Last Use: 12/05/16 Heroin Route: Inhalation Frequency: Daily Amount used: 5 bags Age of first use: 29 Date of Last Use: 12/05/16 Family Disease History - Family Disease History Family Disease History: Diabetes: Brother, Other: Father (), Mother ( ), Sister () Admission Physical Exam [facility] - Vital Signs Vital Signs: Vital Signs - 24 hr 12/05/16 18:15 Temperature 98.1 F Pulse Rate 99 H Respiratory 18 Rate Blood Pressure 125/89 - Physical General Appearance: Yes: Obese, Anxious HEENTM: Yes: Hearing grossly Normal, Normocephalic, Normal Voice, Tm's normal Respiratory: Yes: Chest Non-Tender, Lungs Clear, Normal Breath Sounds, No Respiratory Distress, No Accessory Muscle Use Neck: Yes: No masses,lesions,Nodules, Trachea in good position Breast: Yes: Breast Exam Deferred Cardiology: Yes: Regular Rhythm, Regular Rate Abdominal: Yes: Normal Bowel Sounds, Non Tender, Flat Genitourinary: Yes: Other (NO COMPLAINTS REPORTED) Back: Yes: Normal Inspection Musculoskeletal: Yes: full range of Motion, Gait Steady, Pelvis Stable, Back pain Extremities: Yes: Normal Capillary Refill, Normal Inspection, Normal Range of Motion, Non-Tender 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, Fully Oriented, Motor Strength 5/5, Normal Mood/Affect, Normal Response Integumentary: Yes: Normal Color, Dry, Warm Lymphatic: Yes: Within Normal Limits - Diagnostic (1) Alcohol dependence Current Visit: Yes Status: Chronic (2) Opioid dependence with withdrawal Current Visit: Yes Status: Chronic (3) Diabetes mellitus type II, controlled Current Visit: Yes Status: Chronic Qualifiers: Diabetes mellitus complication status: with ophthalmic complications Diabetes mellitus complication detail: with diabetic retinopathy Diabetic retinopathy severity: with mild nonproliferative retinopathy Diabetes mellitus macular edema: without macular edema Diabetes mellitus senior living insulin use: without ocean transportation intermediary use (4) Hypertension Current Visit: Yes Status: Chronic (5) Hypercholesteremia Current Visit: Yes Status: Chronic (6) Nicotine dependence Current Visit: Yes Status: Chronic Qualifiers: Nicotine product type: cigarettes Substance use status: in withdrawal Qualified Code(s): F17.213 - Nicotine dependence, cigarettes, with withdrawal Cleared for Admission [facility] - Detox or Rehab [facility] Level of Care: Medically Managed Detox Regimen/Protocol: Methadone/Librium [facility] Breath Alcohol Content Breath Alcohol Content: 0.060 Vital Signs - Height Height: 5 ft 10 in - Weight Weight: 230 lb Body Mass Index (BMI): 33.0 Urine Drug Screen - Results Drug Screen Negative: No Urine Drug Screen Results: ALLYSSA-Cocaine, OPI-Opiates, MTD-Methadone
[2016-12-05] MEDS ORDERED: chlordiazePOXIDE HCL 25 MG CAPSULE PO PRN (20:45)
[2016-12-05] MEDS ORDERED: MAGNESIUM CITRATE 300 ML BOTTLE PO PRN (20:45)
[2016-12-05] MEDS ORDERED: chlordiazePOXIDE HCL 25 MG CAPSULE PO ONE (20:45)
[2016-12-05] MEDS ORDERED: MAGNESIUM HYDROX 2400MG/30ML ORAL SUSPENSION 30 ML CUP PO PRN (20:45)
[2016-12-05] MEDS ORDERED: ACETAMINOPHEN 325 MG TABLET (FP) PO PRN (20:45)
[2016-12-05] MEDS ORDERED: MAG HYDROX/AL HYDROX/SIMETH 30 ML UNIT-DOSE CUP PO PRN (20:45)
[2016-12-05] MEDS ORDERED: diphenhydrAMINE HCL 50 MG CAPSULE PO PRN (20:45)
[2016-12-05] MEDS ORDERED: hydrOXYzine PAMOATE 50 MG CAPSULE (FP) PO PRN (20:45)
[2016-12-05] MEDS ORDERED: MENTHOL/PHENOL 1 EACH UD MM PRN (20:45)
[2016-12-05] MEDS ORDERED: P-EPHED 60MG/TRIPROLIDI 2.5MG TABLET PO PRN (20:45)
[2016-12-05] MEDS ORDERED: LOPERAMIDE HCL 2 MG CAPSULE PO PRN (20:45)
[2016-12-05] MEDS ORDERED: guaiFENesin/D-METHORPHAN HB 10 ML UNIT-DOSE CUPS PO PRN (20:45)
[2016-12-05] MEDS ORDERED: METHADONE HCL 10 MG TABLET (FOR DETOX USE ONLY) PO ONE ×2 (20:45→23:00)
[2016-12-05] MEDS: THIAMINE HCL 100 MG TABLET (FP) PO SCH (21:23)
[2016-12-05] MEDS: GABAPENTIN 300 MG CAPSULE (FP) PO SCH (21:24)
[2016-12-05] MEDS: chlordiazePOXIDE HCL 25 MG CAPSULE PO SCH (22:55)
[2016-12-05] MEDS: IBUPROFEN 400 MG TABLET (FP) PO PRN (23:47)
[2016-12-06] MEDS: chlordiazePOXIDE HCL 25 MG CAPSULE PO SCH ×4 (05:48→22:16)
[2016-12-06] MEDS: GABAPENTIN 300 MG CAPSULE (FP) PO SCH ×3 (05:48→22:16)
[2016-12-06] MEDS: metFORMIN HCL 500 MG TABLET (FP) PO SCH (06:25)
[2016-12-06] MEDS: INSULIN SLIDING SCALE (NOVOLOG) 1 VIAL SQ SCH ×2 (06:26→16:41)
[2016-12-06 09:33] LABS: MCH 30.3 pg (25.7-33.7); MCHC 33.1 g/dl (32.0-35.9); MEAN CELL VOLUME 91.7 fl (80-96); MEAN PLT VOLUME 9.1 fl (7.5-11.1); PLATELET COUNT 109 K/MM3 (134-434); RDW 14.3 % (11.9-15.9); WHITE BLOOD COUNT 5.5 K/mm3 (4.0-10.0)
[2016-12-06] MEDS ORDERED: METHADONE HCL 10 MG TABLET (FOR DETOX USE ONLY) PO SCH (10:00)
[2016-12-06 10:07] LABS: ALBUMIN 3.9 g/dl (3.4-5.0); ALK PHOS 111 U/L (45-117); ANION GAP 11 (8-16); BILIRUBIN,TOTAL 0.5 mg/dL (0.2-1.0); CALCIUM 9.3 mg/dL (8.5-10.1); CO2 25 mmol/L (21-32); CREATININE 1.2 mg/dL (0.7-1.3); GLUCOSE,RANDOM 162 mg/dL (74-106); SGOT/AST 19 U/L (15-37); SGPT/ALT 25 U/L (12-78); TOT PROT 7.4 g/dl (6.4-8.2)
[2016-12-06] MEDS: ASPIRIN COATED 81 MG TABLET.EC PO SCH (10:19)
[2016-12-06] MEDS: PRENATAL VITAMINS W/ FOLIC ACID TABLET (FP) PO SCH (10:19)
[2016-12-06] MEDS: amLODIPine BESYLATE 5 MG TABLET (FP) PO SCH (10:19)
--- NOTE | 2016-12-06 10:24 | EKG ---
Test Reason : Blood Pressure : / mmHG Vent. Rate : 093 BPM Atrial Rate : 093 BPM P-R Int : 134 ms QRS Dur : 092 ms QT Int : 366 ms P-R-T Axes : 068 -09 041 degrees QTc Int : 455 ms NORMAL SINUS RHYTHM POSSIBLE LEFT ATRIAL ENLARGEMENT BORDERLINE ECG WHEN COMPARED WITH ECG OF 23-OCT-2016 23:23, NO SIGNIFICANT CHANGE WAS FOUND Confirmed by DAMARI CARBALLO MD ([id number]) on 12/06/2016 10:23:35 AM Referred By: Confirmed By:DAMARI CARBALLO MD
--- NOTE | 2016-12-06 13:28 | PN ---
[facility] CIWA - CIWA Score Nausea/Vomitin-Mild Nausea/No Vomiting Muscle Tremors: 4-Moderate,w/Arms Extend Anxiety: 3 Agitation: 2 Paroxysmal Sweats: 3 Orientation: 0-Oriented Tacttile Disturbances: 2-Mild Itch/Numbness/Burn Auditory Disturbances: 2-Mild Harshness/Frighten Visual Disturbances: 1-Very Mild Sensitivity Headache: 0-None Present CIWA-Ar Total Score: 18 BHS COWS - Scale Resting Pulse: 1= [place] 81-100 Sweatin= Chills/Flushing Restless Observation: 1= Difficult to Sit Still Pupil Size: 0= Normal to Room Light Bone or Joint Aches: 2= Severe Diffuse Aches Runny Nose/ Eye Tearin= Nasal Congestion GI Upset > 30mins: 1= Stomach Cramp Tremor Observation of Outstretched Hands: 2= Slight Tremor Visible Yawning Observation: 1= 1-2x During Session Anxiety or Irritability: 2=Irritable/Anxious Goose Flesh Skin: 3=Piloerection COWS Score: 15 [facility] Progress Note (SOAP) Subjective: Sweating, Tremors, Body Aches, Constipation, Interrupted Sleep. Objective: PT. A & O X 3, OBSERVED AMBULATING ON UNIT. NO ACUTE DISTRESS. PT. DENIES CHEST PAIN. 12/06/16 13:24 Vital Signs Temperature 97.5 F L 12/06/16 10:05 Pulse Rate 90 12/06/16 10:05 Respiratory Rate 18 12/06/16 10:05 Blood Pressure 127/84 12/06/16 10:05 O2 Sat by Pulse Oximetry (%) Laboratory Tests 12/05/16 12/06/16 12/06/16 19:35 05:50 07:00 WBC 5.5 D RBC 4.54 Hgb 13.8 Hct 41.6 MCV 91.7 MCH 30.3 MCHC 33.1 RDW 14.3 D Plt Count 109 L MPV 9.1 D Sodium Potassium Chloride Carbon Dioxide Anion Gap BUN Creatinine Creat Clearance w eGFR POC Glucometer 113 105 Random Glucose Calcium Total Bilirubin AST ALT Alkaline Phosphatase Total Protein Albumin RPR Titer 12/06/16 12/06/16 07:00 07:00 WBC RBC Hgb Hct MCV MCH MCHC RDW Plt Count MPV Sodium 139 Potassium 3.4 L Chloride 103 Carbon Dioxide 25 Anion Gap 11 BUN 17 D Creatinine 1.2 Creat Clearance w eGFR > 60 POC Glucometer Random Glucose 162 H D Calcium 9.3 Total Bilirubin 0.5 AST 19 D ALT 25 D Alkaline Phosphatase 111 Total Protein 7.4 Albumin 3.9 RPR Titer Nonreactive LABS NOTED. Assessment: 12/06/16 13:25 WITHDRAWAL SYMPTOMS. Plan: CONTINUE DETOX. K, 20 MEQ PO X 1 NOW, THEN 20 MEQ PO BID AFTER. PRN MOM FOR CONSTIPATION.
[2016-12-06] MEDS ORDERED: COLLOIDAL OATMEAL 1 BAR EACH TP PRN (13:35)
--- NOTE | 2016-12-06 13:40 | CONSULT ---
[facility] Psychiatric Consult - Data Date of interview: 12/06/16 Admission source: [facility] Identifying data: Readmission to [facility] for this 55 y/o AA male seeking detox treatment on for alcohol,heroin and cocaine dependence.Patient is a ,a father of three,undomiciled,unemployed and supported on food stamps. Substance Abuse History: Discussed with patient in this session. Smoking Cessation. Smoking history: Current every day smoker. Have you smoked in the past 12 months: Yes. Aproximately how many cigarettes per day: 10. Cigars Per Day: 0. Hx Chewing Tobacco Use: No. Initiated information on smoking cessation : Yes. 'Breaking Loose' booklet given: 12/05/16. - Substance & Tx. History. Hx Alcohol Use: Yes. Hx Substance Use: Yes. Substance Use Type: Alcohol, Heroin. Hx Substance Use Treatment: Yes (DETX: DOES NOT RECALL MOST RECENT ADMISSION; REHAB: 10/2016). - Substances Abused. Alcohol. Route: Oral. Frequency: Daily. Amount used: liquor- 2 pints, beer- 2 six packs. Age of first use: 19. Date of Last Use: 12/05/16. Heroin. Route: Inhalation. Frequency: Daily. Amount used: 5 bags. Age of first use: 29. Date of Last Use : 12/05/16 Medical History: Remarkable for hypertension,lower back pain,left sciatica and diabetic mellitus. Psychiatric History: No prior history of psychiatric hospitalizations.Mr Mathis indicates that he was treated for major depression earlier this year () with a regimen of prozac 10 mg/day + seroquel 100 mg/hs + gabapentin 300 mg po tid.Dropped out of treatment shortly after completion of drug rehabilitation at [facility].NO OPD care.Patient denies history of suicide attempts. Physical/Sexual Abuse/Trauma History: No reported history of sexual abuse.Heavy stressors : multiple deaths in the family in 2017 (both parents,,two sisters ),worsening of substance dependence,homelessness,loss of employment and increased involvement with drug-dependent individuals in the community. Additional Comment: Urine Drug Screen Results: ALLYSSA-Cocaine, OPI-Opiates, MTD- Methadone.Noted. Mental Status Exam - Mental Status Exam Alert and Oriented to: Time, Place, Person Cognitive Function: Good Patient Appearance: Well Groomed (neat,tidy) Mood: Sad, Nervous, Anxious, Hopeful Affect: Mood Congruent, Constricted Patient Behavior: Talkative, Appropriate, Cooperative Speech Pattern: Clear, Appropriate Voice Loudness: Normal Thought Process: Intact, Goal Oriented Thought Disorder: Not Present Hallucinations: Denies Suicidal Ideation: Denies Homicidal Ideation: Denies Insight/Judgement: Poor Sleep: Poorly, Difficulty falling asleep Appetite: Good Muscle strength/Tone: Normal Gait/Station: Normal Psychiatric Findings - Problem List ([place] 1, 2,3) (1) Alcohol dependence Current Visit: Yes Status: Acute (2) Opioid dependence with withdrawal Current Visit: Yes Status: Acute (3) Cocaine dependence Current Visit: Yes Status: Acute (4) Nicotine dependence Current Visit: Yes Status: Acute Qualifiers: Nicotine product type: cigarettes Substance use status: in withdrawal Qualified Code(s): F17.213 - Nicotine dependence, cigarettes, with withdrawal (5) MDD (major depressive disorder) Current Visit: Yes Status: Chronic (6) Diabetes mellitus type II, controlled Current Visit: Yes Status: Chronic Qualifiers: Diabetes mellitus complication status: with ophthalmic complications Diabetes mellitus complication detail: with diabetic retinopathy Diabetic retinopathy severity: with mild nonproliferative retinopathy Diabetes mellitus macular edema: without macular edema Diabetes mellitus 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 treater 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 insulin use: without residential use (7) Hypercholesteremia Current Visit: Yes Status: Chronic (8) Hypertension Current Visit: Yes Status: Chronic (9) Insomnia Current Visit: Yes Status: Acute (10) Left sciatic nerve pain Current Visit: Yes Status: Chronic (11) Chronic low back pain Current Visit: Yes Status: Chronic (12) Essential hypertension Current Visit: Yes Status: Chronic - Initial Treatment Plan Initial Treatment Plan: Psychoeducation.Detoxification.Medications : prozac 20 mg po daily + seroquel 100 mg po hs.Side effects/benefits discussed with patient.Made aware of risk for suicidal ideation,sexual dysfunction (prozac) and abnormal involuntary movements,oversedation,metabolic syndrome and cardiac adverse events (seroquel).Patient reports a past history of good tolerability and he insists on getting back on these two medications.Observation.
[2016-12-06] MEDS ORDERED: POTASSIUM CHLORIDE TABS 20 MEQ TABLET.ER (FP) PO ONE (14:25)
[2016-12-06] MEDS: POTASSIUM CHLORIDE TABS 20 MEQ TABLET.ER (FP) PO SCH (17:37)
[2016-12-06] MEDS: THIAMINE HCL 100 MG TABLET (FP) PO SCH (22:15)
[2016-12-06] MEDS: QUEtiapine FUMARATE 100 MG TABLET (FP) PO SCH (22:16)
[2016-12-07] MEDS: IBUPROFEN 400 MG TABLET (FP) PO PRN (05:59)
[2016-12-07] MEDS: chlordiazePOXIDE HCL 25 MG CAPSULE PO SCH ×3 (05:59→17:38)
[2016-12-07] MEDS: GABAPENTIN 300 MG CAPSULE (FP) PO SCH ×3 (05:59→22:31)
[2016-12-07] MEDS: metFORMIN HCL 500 MG TABLET (FP) PO SCH (06:37)
[2016-12-07] MEDS: INSULIN SLIDING SCALE (NOVOLOG) 1 VIAL SQ SCH ×2 (06:38→16:52)
[2016-12-07] MEDS ORDERED: INSULIN (NOVOLOG) ASPART 100 UNITS/ML 10ML VIAL ONE (06:45)
[2016-12-07] MEDS: ASPIRIN COATED 81 MG TABLET.EC PO SCH (10:19)
[2016-12-07] MEDS: PRENATAL VITAMINS W/ FOLIC ACID TABLET (FP) PO SCH (10:19)
[2016-12-07] MEDS ORDERED: ONDANSETRON *ODT* 4 MG TABLET SL PRN (10:19)
[2016-12-07] MEDS: FLUoxetine HCL 20 MG CAPSULE (FP) PO SCH (10:20)
[2016-12-07] MEDS: METHADONE HCL 5 MG TABLET (FOR DETOX USE ONLY) PO SCH (10:20)
[2016-12-07] MEDS: POTASSIUM CHLORIDE TABS 20 MEQ TABLET.ER (FP) PO SCH ×2 (10:20→17:38)
[2016-12-07] MEDS: amLODIPine BESYLATE 5 MG TABLET (FP) PO SCH (10:20)
[2016-12-07] MEDS ORDERED: CYCLOBENZAPRINE HCL 10 MG TABLET (FP) PO PRN (10:21)
--- NOTE | 2016-12-07 13:48 | PN ---
S CIWA - CIWA Score Nausea/Vomitin-Int. Nausea w/Dry Heave Muscle Tremors: 3 Anxiety: 3 Agitation: 2 Paroxysmal Sweats: 3 Orientation: 0-Oriented Tacttile Disturbances: 0-None Auditory Disturbances: 1-Very Mild Visual Disturbances: 2-Mild Sensitivity Headache: 0-None Present CIWA-Ar Total Score: 18 BHS COWS - Scale Resting Pulse: 0= [place] 80 or Below Sweatin= Chills/Flushing Restless Observation: 1= Difficult to Sit Still Pupil Size: 0= Normal to Room Light Bone or Joint Aches: 2= Severe Diffuse Aches Runny Nose/ Eye Tearin= Nasal Congestion GI Upset > 30mins: 2= Nausea/Diarrhea Tremor Observation of Outstretched Hands: 2= Slight Tremor Visible Yawning Observation: 1= 1-2x During Session Anxiety or Irritability: 2=Irritable/Anxious Goose Flesh Skin: 0=Smooth Skin COWS Score: 12 S Progress Note (SOAP) Subjective: Interrupted sleep, Nausea, Sweating, Body aches. Objective: PT. A & O X 3, OBSERVED AMBULATING ON UNIT. NO ACUTE DISTRESS. 12/07/16 13:46 Vital Signs Temperature 97.3 F L 12/07/16 10:22 Pulse Rate 80 12/07/16 10:22 Respiratory Rate 18 12/07/16 10:22 Blood Pressure 123/92 12/07/16 10:22 O2 Sat by Pulse Oximetry (%) Laboratory Tests 12/05/16 12/06/16 12/06/16 19:35 05:50 07:00 WBC 5.5 D RBC 4.54 Hgb 13.8 Hct 41.6 MCV 91.7 MCH 30.3 MCHC 33.1 RDW 14.3 D Plt Count 109 L MPV 9.1 D Sodium Potassium Chloride Carbon Dioxide Anion Gap BUN Creatinine Creat Clearance w eGFR POC Glucometer 113 105 Random Glucose Calcium Total Bilirubin AST ALT Alkaline Phosphatase Total Protein Albumin RPR Titer 12/06/16 12/06/16 12/06/16 07:00 07:00 16:27 WBC RBC Hgb Hct MCV MCH MCHC RDW Plt Count MPV Sodium 139 Potassium 3.4 L Chloride 103 Carbon Dioxide 25 Anion Gap 11 BUN 17 D Creatinine 1.2 Creat Clearance w eGFR > 60 POC Glucometer 106 Random Glucose 162 H D Calcium 9.3 Total Bilirubin 0.5 AST 19 D ALT 25 D Alkaline Phosphatase 111 Total Protein 7.4 Albumin 3.9 RPR Titer Nonreactive 12/07/16 06:02 WBC RBC Hgb Hct MCV MCH MCHC RDW Plt Count MPV Sodium Potassium Chloride Carbon Dioxide Anion Gap BUN Creatinine Creat Clearance w eGFR POC Glucometer 184 Random Glucose Calcium Total Bilirubin AST ALT Alkaline Phosphatase Total Protein Albumin RPR Titer LABS NOTED. UA RESULT SPENDING. 12/07/16 13:47 Assessment: 12/07/16 13:46 WITHDRAWAL SYMPTOMS. Plan: CONTINUE DETOX. PRN ZOFRAN SL FOR NAUSEA. PRN FLEXERIL PO FOR BODY ACHES / MUSCLE SPASMS.
[2016-12-07 16:36] LABS: URINE APPEARANCE SLCLOUDY; URINE BILIRUBIN NEGATIVE (NEGATIVE); URINE BLOOD NEGATIVE (NEGATIVE); URINE COLOR DKYELLOW; URINE GLUCOSE (UA) NEGATIVE (NEGATIVE); URINE KETONE NEGATIVE (NEGATIVE); URINE LEUK ESTERASE NEGATIVE (NEGATIVE); URINE NITRITE NEGATIVE (NEGATIVE); URINE UROBILINOGEN NEGATIVE mg/dL (0.2-1.0)
[2016-12-07 16:53] LABS: URINE PROTEIN 1+ (NEGATIVE)
[2016-12-07] MEDS: IBUPROFEN 600 MG TABLET (FP) PO PRN (17:40)
[2016-12-07] MEDS: chlordiazePOXIDE 5 MG CAPSULE PO SCH (22:31)
[2016-12-07] MEDS: QUEtiapine FUMARATE 100 MG TABLET (FP) PO SCH (22:31)
[2016-12-07] MEDS: THIAMINE HCL 100 MG TABLET (FP) PO SCH (22:31)
[2016-12-08] MEDS: GABAPENTIN 300 MG CAPSULE (FP) PO SCH ×3 (05:24→22:16)
[2016-12-08] MEDS: chlordiazePOXIDE 5 MG CAPSULE PO SCH ×3 (05:24→17:33)
[2016-12-08] MEDS: IBUPROFEN 600 MG TABLET (FP) PO PRN (05:46)
[2016-12-08] MEDS: INSULIN SLIDING SCALE (NOVOLOG) 1 VIAL SQ SCH ×2 (06:12→17:33)
[2016-12-08] MEDS: metFORMIN HCL 500 MG TABLET (FP) PO SCH (06:12)
[2016-12-08] MEDS: PRENATAL VITAMINS W/ FOLIC ACID TABLET (FP) PO SCH (10:43)
[2016-12-08] MEDS: amLODIPine BESYLATE 5 MG TABLET (FP) PO SCH (10:43)
[2016-12-08] MEDS: FLUoxetine HCL 20 MG CAPSULE (FP) PO SCH (10:44)
[2016-12-08] MEDS: ASPIRIN COATED 81 MG TABLET.EC PO SCH (10:44)
[2016-12-08] MEDS: METHADONE HCL 5 MG TABLET (FOR DETOX USE ONLY) PO SCH (10:46)
[2016-12-08] MEDS: POTASSIUM CHLORIDE TABS 20 MEQ TABLET.ER (FP) PO SCH ×2 (10:47→17:33)
--- NOTE | 2016-12-08 12:57 | PN ---
[facility] Progress Note (SOAP) Subjective: Sweating, Body Aches, Tremors, Constipation, Stomach cramping. Objective: PT. A & O X 3, OBSERVED AMBULATING ON UNIT. NO ACUTE DISTRESS. 12/08/16 12:56 Vital Signs Temperature 96.5 F L 12/08/16 11:20 Pulse Rate 78 12/08/16 11:20 Respiratory Rate 18 12/08/16 11:20 Blood Pressure 132/87 12/08/16 11:20 O2 Sat by Pulse Oximetry (%) Laboratory Tests 12/05/16 12/06/16 12/06/16 19:35 05:50 07:00 WBC 5.5 D RBC 4.54 Hgb 13.8 Hct 41.6 MCV 91.7 MCH 30.3 MCHC 33.1 RDW 14.3 D Plt Count 109 L MPV 9.1 D Sodium Potassium Chloride Carbon Dioxide Anion Gap BUN Creatinine Creat Clearance w eGFR POC Glucometer 113 105 Random Glucose Calcium Total Bilirubin AST ALT Alkaline Phosphatase Total Protein Albumin Urine Color Urine Appearance Urine pH Ur Specific [place] Urine Protein Urine Glucose (UA) Urine Ketones Urine Blood Urine Nitrite Urine Bilirubin Urine Urobilinogen RPR Titer 12/06/16 12/06/16 12/06/16 07:00 07:00 16:27 WBC RBC Hgb Hct MCV MCH MCHC RDW Plt Count MPV Sodium 139 Potassium 3.4 L Chloride 103 Carbon Dioxide 25 Anion Gap 11 BUN 17 D Creatinine 1.2 Creat Clearance w eGFR > 60 POC Glucometer 106 Random Glucose 162 H D Calcium 9.3 Total Bilirubin 0.5 AST 19 D ALT 25 D Alkaline Phosphatase 111 Total Protein 7.4 Albumin 3.9 Urine Color Urine Appearance Urine pH Ur Specific [place] Urine Protein Urine Glucose (UA) Urine Ketones Urine Blood Urine Nitrite Urine Bilirubin Urine Urobilinogen RPR Titer Nonreactive 12/07/16 12/07/16 12/07/16 06:02 13:30 16:29 WBC RBC Hgb Hct MCV MCH MCHC RDW Plt Count MPV Sodium Potassium Chloride Carbon Dioxide Anion Gap BUN Creatinine Creat Clearance w eGFR POC Glucometer 184 87 Random Glucose Calcium Total Bilirubin AST ALT Alkaline Phosphatase Total Protein Albumin Urine Color Dkyellow Urine Appearance Slcloudy Urine pH 5.0 Ur Specific [place] >= 1.030 H Urine Protein 1+ H Urine Glucose (UA) Negative Urine Ketones Negative Urine Blood Negative Urine Nitrite Negative Urine Bilirubin Negative Urine Urobilinogen Negative RPR Titer 12/08/16 05:25 WBC RBC Hgb Hct MCV MCH MCHC RDW Plt Count MPV Sodium Potassium Chloride Carbon Dioxide Anion Gap BUN Creatinine Creat Clearance w eGFR POC Glucometer 122 Random Glucose Calcium Total Bilirubin AST ALT Alkaline Phosphatase Total Protein Albumin Urine Color Urine Appearance Urine pH Ur Specific [place] Urine Protein Urine Glucose (UA) Urine Ketones Urine Blood Urine Nitrite Urine Bilirubin Urine Urobilinogen RPR Titer LABS NOTED. Assessment: 12/08/16 12:57 WITHDRAWAL SYMPTOMS. Plan: CONTINUE DETOX. PRN MOM FOR CONSTIPATION. INCREASE DAILY PO FLUID INTAKE.
[2016-12-08] MEDS: chlordiazePOXIDE HCL 10 MG CAPSULE PO SCH (22:16)
[2016-12-08] MEDS: THIAMINE HCL 100 MG TABLET (FP) PO SCH (22:16)
[2016-12-08] MEDS: QUEtiapine FUMARATE 100 MG TABLET (FP) PO SCH (22:17)
[2016-12-09] MEDS: chlordiazePOXIDE HCL 10 MG CAPSULE PO SCH ×3 (05:51→17:39)
[2016-12-09] MEDS: GABAPENTIN 300 MG CAPSULE (FP) PO SCH ×3 (05:52→22:24)
[2016-12-09] MEDS: IBUPROFEN 600 MG TABLET (FP) PO PRN (05:53)
[2016-12-09] MEDS: metFORMIN HCL 500 MG TABLET (FP) PO SCH (06:29)
[2016-12-09] MEDS: INSULIN SLIDING SCALE (NOVOLOG) 1 VIAL SQ SCH ×2 (06:33→18:21)
[2016-12-09] MEDS ORDERED: METHADONE HCL 10 MG TABLET (FOR DETOX USE ONLY) PO SCH (10:00)
[2016-12-09] MEDS: amLODIPine BESYLATE 5 MG TABLET (FP) PO SCH (10:43)
[2016-12-09] MEDS: ASPIRIN COATED 81 MG TABLET.EC PO SCH (10:43)
[2016-12-09] MEDS: POTASSIUM CHLORIDE TABS 20 MEQ TABLET.ER (FP) PO SCH ×2 (10:43→18:46)
[2016-12-09] MEDS: FLUoxetine HCL 20 MG CAPSULE (FP) PO SCH (10:44)
[2016-12-09] MEDS: PRENATAL VITAMINS W/ FOLIC ACID TABLET (FP) PO SCH (10:44)
--- NOTE | 2016-12-09 19:29 | PN ---
S Progress Note (SOAP) Subjective: Nausea, Constipation, Stomach Cramping, Body Aches. Objective: PT. A & O X 3, OBSERVED AMBULATING ON UNIT. NO ACUTE DISTRESS. 12/09/16 19:26 Vital Signs Temperature 96.9 F L 12/09/16 18:10 Pulse Rate 82 12/09/16 18:10 Respiratory Rate 18 12/09/16 18:10 Blood Pressure 109/66 12/09/16 18:10 O2 Sat by Pulse Oximetry (%) Laboratory Tests 12/05/16 12/06/16 12/06/16 19:35 05:50 07:00 WBC 5.5 D RBC 4.54 Hgb 13.8 Hct 41.6 MCV 91.7 MCH 30.3 MCHC 33.1 RDW 14.3 D Plt Count 109 L MPV 9.1 D Sodium Potassium Chloride Carbon Dioxide Anion Gap BUN Creatinine Creat Clearance w eGFR POC Glucometer 113 105 Random Glucose Calcium Total Bilirubin AST ALT Alkaline Phosphatase Total Protein Albumin Urine Color Urine Appearance Urine pH Ur Specific [place] Urine Protein Urine Glucose (UA) Urine Ketones Urine Blood Urine Nitrite Urine Bilirubin Urine Urobilinogen RPR Titer 12/06/16 12/06/16 12/06/16 07:00 07:00 16:27 WBC RBC Hgb Hct MCV MCH MCHC RDW Plt Count MPV Sodium 139 Potassium 3.4 L Chloride 103 Carbon Dioxide 25 Anion Gap 11 BUN 17 D Creatinine 1.2 Creat Clearance w eGFR > 60 POC Glucometer 106 Random Glucose 162 H D Calcium 9.3 Total Bilirubin 0.5 AST 19 D ALT 25 D Alkaline Phosphatase 111 Total Protein 7.4 Albumin 3.9 Urine Color Urine Appearance Urine pH Ur Specific [place] Urine Protein Urine Glucose (UA) Urine Ketones Urine Blood Urine Nitrite Urine Bilirubin Urine Urobilinogen RPR Titer Nonreactive 12/07/16 12/07/16 12/07/16 06:02 13:30 16:29 WBC RBC Hgb Hct MCV MCH MCHC RDW Plt Count MPV Sodium Potassium Chloride Carbon Dioxide Anion Gap BUN Creatinine Creat Clearance w eGFR POC Glucometer 184 87 Random Glucose Calcium Total Bilirubin AST ALT Alkaline Phosphatase Total Protein Albumin Urine Color Dkyellow Urine Appearance Slcloudy Urine pH 5.0 Ur Specific [place] >= 1.030 H Urine Protein 1+ H Urine Glucose (UA) Negative Urine Ketones Negative Urine Blood Negative Urine Nitrite Negative Urine Bilirubin Negative Urine Urobilinogen Negative RPR Titer 12/08/16 12/08/16 12/09/16 05:25 16:33 05:56 WBC RBC Hgb Hct MCV MCH MCHC RDW Plt Count MPV Sodium Potassium Chloride Carbon Dioxide Anion Gap BUN Creatinine Creat Clearance w eGFR POC Glucometer 122 93 109 Random Glucose Calcium Total Bilirubin AST ALT Alkaline Phosphatase Total Protein Albumin Urine Color Urine Appearance Urine pH Ur Specific [place] Urine Protein Urine Glucose (UA) Urine Ketones Urine Blood Urine Nitrite Urine Bilirubin Urine Urobilinogen RPR Titer LABS NOTED. Assessment: 12/09/16 19:27 WITHDRAWAL SYMPTOMS. HYPOKALEMIA. 12/09/16 19:28 Plan: CONTINUE DETOX. COLACE, 100 MG PO BID FOR CONSTIPATION.
[2016-12-09] MEDS: DOCUSATE SODIUM 100 MG CAPSULE (FP) PO SCH (22:24)
[2016-12-09] MEDS: QUEtiapine FUMARATE 100 MG TABLET (FP) PO SCH (22:24)
[2016-12-09] MEDS: THIAMINE HCL 100 MG TABLET (FP) PO SCH (22:24)
[2016-12-10] MEDS: GABAPENTIN 300 MG CAPSULE (FP) PO SCH (06:00)
[2016-12-10] MEDS: IBUPROFEN 600 MG TABLET (FP) PO PRN (06:00)
[2016-12-10] MEDS ORDERED: METHADONE HCL 5 MG TABLET (FOR DETOX USE ONLY) PO SCH (06:00)
[2016-12-10] MEDS: metFORMIN HCL 500 MG TABLET (FP) PO SCH (07:10)
[2016-12-10] MEDS: INSULIN SLIDING SCALE (NOVOLOG) 1 VIAL SQ SCH (07:10)
[2016-12-10 09:40] VITALS: BP 127/80; PULSE 101; TEMP 97
[2016-12-10] MEDS: FLUoxetine HCL 20 MG CAPSULE (FP) PO SCH (10:59)
[2016-12-10] MEDS: ASPIRIN COATED 81 MG TABLET.EC PO SCH (10:59)
[2016-12-10] MEDS: DOCUSATE SODIUM 100 MG CAPSULE (FP) PO SCH (10:59)
[2016-12-10] MEDS: amLODIPine BESYLATE 5 MG TABLET (FP) PO SCH (10:59)
[2016-12-10] MEDS: POTASSIUM CHLORIDE TABS 20 MEQ TABLET.ER (FP) PO SCH (10:59)
[2016-12-10] MEDS: PRENATAL VITAMINS W/ FOLIC ACID TABLET (FP) PO SCH (10:59)
--- NOTE | 2016-12-10 15:35 | DS ---
[facility] Detox Discharge Summary Admission Date: 12/05/16 Discharge Date: 12/10/16 - History Present History: Alcohol Dependence, Opioid Dependence Pertinent Past History: DMT2 with hyperglycemia HLD HTN PPD Positive - Physical Exam Results Vital Signs: Vital Signs Temperature 97.0 F L 12/10/16 09:40 Pulse Rate 101 H 12/10/16 09:40 Respiratory Rate 18 12/10/16 09:40 Blood Pressure 127/80 12/10/16 09:40 O2 Sat by Pulse Oximetry (%) Pertinent Admission Physical Exam Findings: Withdrawal symptoms Laboratory Tests 12/05/16 12/06/16 12/06/16 19:35 05:50 07:00 WBC 5.5 D RBC 4.54 Hgb 13.8 Hct 41.6 MCV 91.7 MCH 30.3 MCHC 33.1 RDW 14.3 D Plt Count 109 L MPV 9.1 D Sodium Potassium Chloride Carbon Dioxide Anion Gap BUN Creatinine Creat Clearance w eGFR POC Glucometer 113 105 Random Glucose Calcium Total Bilirubin AST ALT Alkaline Phosphatase Total Protein Albumin Urine Color Urine Appearance Urine pH Ur Specific [place] Urine Protein Urine Glucose (UA) Urine Ketones Urine Blood Urine Nitrite Urine Bilirubin Urine Urobilinogen RPR Titer 12/06/16 12/06/16 12/06/16 07:00 07:00 16:27 WBC RBC Hgb Hct MCV MCH MCHC RDW Plt Count MPV Sodium 139 Potassium 3.4 L Chloride 103 Carbon Dioxide 25 Anion Gap 11 BUN 17 D Creatinine 1.2 Creat Clearance w eGFR > 60 POC Glucometer 106 Random Glucose 162 H D Calcium 9.3 Total Bilirubin 0.5 AST 19 D ALT 25 D Alkaline Phosphatase 111 Total Protein 7.4 Albumin 3.9 Urine Color Urine Appearance Urine pH Ur Specific [place] Urine Protein Urine Glucose (UA) Urine Ketones Urine Blood Urine Nitrite Urine Bilirubin Urine Urobilinogen RPR Titer Nonreactive 12/07/16 12/07/16 12/07/16 06:02 13:30 16:29 WBC RBC Hgb Hct MCV MCH MCHC RDW Plt Count MPV Sodium Potassium Chloride Carbon Dioxide Anion Gap BUN Creatinine Creat Clearance w eGFR POC Glucometer 184 87 Random Glucose Calcium Total Bilirubin AST ALT Alkaline Phosphatase Total Protein Albumin Urine Color Dkyellow Urine Appearance Slcloudy Urine pH 5.0 Ur Specific [place] >= 1.030 H Urine Protein 1+ H Urine Glucose (UA) Negative Urine Ketones Negative Urine Blood Negative Urine Nitrite Negative Urine Bilirubin Negative Urine Urobilinogen Negative RPR Titer 12/08/16 12/08/16 12/09/16 05:25 16:33 05:56 WBC RBC Hgb Hct MCV MCH MCHC RDW Plt Count MPV Sodium Potassium Chloride Carbon Dioxide Anion Gap BUN Creatinine Creat Clearance w eGFR POC Glucometer 122 93 109 Random Glucose Calcium Total Bilirubin AST ALT Alkaline Phosphatase Total Protein Albumin Urine Color Urine Appearance Urine pH Ur Specific [place] Urine Protein Urine Glucose (UA) Urine Ketones Urine Blood Urine Nitrite Urine Bilirubin Urine Urobilinogen RPR Titer 12/10/16 05:59 WBC RBC Hgb Hct MCV MCH MCHC RDW Plt Count MPV Sodium Potassium Chloride Carbon Dioxide Anion Gap BUN Creatinine Creat Clearance w eGFR POC Glucometer 104 Random Glucose Calcium Total Bilirubin AST ALT Alkaline Phosphatase Total Protein Albumin Urine Color Urine Appearance Urine pH Ur Specific [place] Urine Protein Urine Glucose (UA) Urine Ketones Urine Blood Urine Nitrite Urine Bilirubin Urine Urobilinogen RPR Titer Labs noted - Treatment Hospital Course: Detox Protocol Followed, Detoxed Safely, Responded well, Discharged Condition Good - Medication Discharge Medications: Ambulatory Orders Gabapentin [Neurontin -] 300 mg PO TID #90 06/15/16 Quetiapine Fumarate [Seroquel -] 50 mg PO HS #30 tablet 11/03/16 Amlodipine Besylate [Norvasc -] 5 mg PO DAILY #30 tablet 11/06/16 Aspirin [Aspirin EC] 81 mg PO DAILY #30 tab 11/06/16 Gabapentin [Neurontin -] 300 mg PO TID #90 cap 11/06/16 Metformin HCl [Glucophage -] 500 mg PO DAILY #30 tab 11/06/16 Omeprazole 20 mg PO DAILY #30 cap 11/06/16 Fluoxetine HCl [Prozac] 20 mg PO DAILY #30 capsule 12/06/16 Quetiapine Fumarate [Seroquel] 100 mg PO HS #30 tablet 12/06/16 - Diagnosis (1) MDD (major depressive disorder), recurrent episode Status: Chronic (2) Opioid dependence with withdrawal Status: Acute (3) Alcohol dependence with uncomplicated withdrawal Status: Acute (4) Diabetes mellitus type II, controlled Status: Chronic Qualifiers: Diabetes mellitus complication status: with ophthalmic complications Diabetes mellitus complication detail: with diabetic retinopathy Diabetic retinopathy severity: with mild nonproliferative retinopathy Diabetes mellitus macular edema: without macular edema Diabetes mellitus correction insulin use: without correction use (5) Essential hypertension Status: Chronic (6) Hypercholesteremia Status: Chronic (7) PPD positive Status: Chronic (8) Nicotine dependence Status: Chronic Qualifiers: Nicotine product type: cigarettes Substance use status: in withdrawal Qualified Code(s): F17.213 - Nicotine dependence, cigarettes, with withdrawal (9) Hypokalemia Status: Acute - AMA Did Patient Leave Against Medical Advice: No
== END 2016-12-10 11:43 | disposition home or self-care (01) | DRG 773 ==
LOC: YASAS 15:09 → Y3N 19:37
PROVIDERS: ADMIT Internal Medicine; ATTEND Internal Medicine
PROC: HZ2ZZZZ Detoxification Services for Substance Abuse Treatment (ICD-10-PCS; principal; 2016-12-05)
DX: F11.23 Opioid dependence with withdrawal (principal); F10.230 Alcohol dependence with withdrawal, uncomplicated; F17.213 Nicotine dependence, cigarettes, with withdrawal; F33.9 Major depressive disorder, recurrent, unspecified; G47.00 Insomnia, unspecified; I10 Essential (primary) hypertension; E13.39 Other specified diabetes mellitus with other diabetic ophthalmic complication; E78.00 Pure hypercholesterolemia, unspecified; E87.6 Hypokalemia; M54.42 Lumbago with sciatica, left side; R76.11 Nonspecific reaction to tuberculin skin test without active tuberculosis
CPT/HCPCS: 36415; 80053; 81003; 85027; 86593; 93005; 93010

== ENCOUNTER 2021-09-20 11:38 | Inpatient (IN) | payer OTHER ==
[2021-09-20 12:33] VITALS: BMI 37.3
[2021-09-20] MEDS ORDERED: MAG HYDROX/AL HYDROX/SIMETH 30 ML UNIT-DOSE CUP PO PRN (12:41)
[2021-09-20] MEDS ORDERED: BENZOCAINE/MENTHOL (CHLORASEPTIC ) LOZENGE MM PRN (12:41)
[2021-09-20] MEDS ORDERED: MAGNESIUM CITRATE 300 ML BOTTLE PO PRN (12:41)
[2021-09-20] MEDS ORDERED: ACETAMINOPHEN 325 MG TABLET (FP) PO PRN ×2 (12:41)
[2021-09-20] MEDS ORDERED: ONDANSETRON *ODT* 4 MG TABLET SL PRN (12:41)
[2021-09-20] MEDS ORDERED: IBUPROFEN 400 MG TABLET (FP) PO PRN (12:41)
[2021-09-20] MEDS ORDERED: LOPERAMIDE HCL 2 MG CAPSULE PO PRN (12:41)
[2021-09-20] MEDS ORDERED: MAGNESIUM HYDROX 2400MG/30ML ORAL SUSPENSION 30 ML CUP PO PRN (12:41)
[2021-09-20] MEDS ORDERED: chlordiazePOXIDE HCL 25 MG CAPSULE PO PRN (12:41)
[2021-09-20] MEDS ORDERED: DICYCLOMINE HCL 10 MG CAPSULE PO PRN (12:41)
[2021-09-20] MEDS: ASPIRIN COATED 81 MG TABLET.EC PO SCH (14:37)
[2021-09-20] MEDS: hydrOXYzine PAMOATE 25 MG CAPSULE (FP) PO SCH ×3 (14:37→22:24)
[2021-09-20] MEDS: amLODIPine BESYLATE 5 MG TABLET (FP) PO SCH (14:37)
[2021-09-20] MEDS: PRENATAL VITAMINS W/ FOLIC ACID TABLET (FP) PO SCH (14:38)
[2021-09-20] MEDS: NICOTINE 14 MG/24 HOURS TOPICAL PATCH TD SCH (14:38)
[2021-09-20 17:34] LABS: HEMATOCRIT 42.2 % (35.4-49); HEMOGLOBIN 14.2 GM/dL (11.7-16.9); MCH 34.2 pg (25.7-33.7); MCHC 33.6 g/dl (32.0-35.9); MEAN CELL VOLUME 101.5 fl (80-96); MEAN PLT VOLUME 9.8 fl (7.5-11.1); PLATELET COUNT 117 10^3/uL (134-434); RBC 4.16 M/mm3 (4.00-5.60); RDW 15.3 % (11.9-15.9); WHITE BLOOD COUNT 3.9 K/mm3 (4.0-10.0)
[2021-09-20] MEDS: chlordiazePOXIDE HCL 25 MG CAPSULE PO SCH ×2 (17:35→22:24)
[2021-09-20] MEDS: METHOCARBAMOL 500 MG TABLET PO PRN (17:36)
[2021-09-20] MEDS: IBUPROFEN 600 MG TABLET (FP) PO PRN (17:36)
[2021-09-20] MEDS: NICOTINE 10 MG CARTRIDGE (INHALER) IH PRN (17:41)
[2021-09-20 17:43] LABS: ALBUMIN 3.6 g/dl (3.4-5.0); BLOOD UREA NITROGEN 14.4 mg/dL (7-18); CALCIUM 9.1 mg/dL (8.5-10.1)
[2021-09-20 17:47] LABS: BILIRUBIN,TOTAL 1.1 mg/dL (0.2-1); TOT PROT 7.6 g/dl (6.4-8.2)
[2021-09-20] MEDS: MELATONIN 5 MG TABLETS PO SCH (22:23)
[2021-09-20] MEDS: THIAMINE HCL 100 MG TABLET (FP) PO SCH (22:24)
[2021-09-21] MEDS: chlordiazePOXIDE HCL 25 MG CAPSULE PO SCH ×2 (05:17→10:52)
[2021-09-21] MEDS: hydrOXYzine PAMOATE 25 MG CAPSULE (FP) PO SCH ×2 (05:17→11:00)
[2021-09-21] MEDS: IBUPROFEN 600 MG TABLET (FP) PO PRN ×2 (05:19→18:10)
[2021-09-21] MEDS ORDERED: methaDONE HCL 10 MG TABLET PO SCH (10:00)
[2021-09-21] MEDS ORDERED: metFORMIN HCL 500 MG TABLET (FP) PO SCH (10:00)
[2021-09-21] MEDS ORDERED: methaDONE HCL 10 MG TABLET ONE (10:47)
[2021-09-21] MEDS ORDERED: methaDONE HCL 40 MG DISPERSABLE TABLET ONE (10:48)
[2021-09-21] MEDS: PRENATAL VITAMINS W/ FOLIC ACID TABLET (FP) PO SCH (10:52)
[2021-09-21] MEDS: amLODIPine BESYLATE 5 MG TABLET (FP) PO SCH (10:53)
[2021-09-21] MEDS: ASPIRIN COATED 81 MG TABLET.EC PO SCH (10:53)
[2021-09-21] MEDS: NICOTINE 14 MG/24 HOURS TOPICAL PATCH TD SCH (10:53)
[2021-09-21] MEDS: PANTOPRAZOLE 20 MG TABLET PO SCH (10:54)
[2021-09-21] MEDS ORDERED: LORazepam 1 MG TABLET PO PRN (11:01)
[2021-09-21] MEDS: GABAPENTIN 300 MG CAPSULE PO SCH ×2 (14:43→22:38)
[2021-09-21] MEDS ORDERED: POTASSIUM CHLORIDE TABS 20 MEQ TABLET.ER (FP) PO ONE (17:19)
[2021-09-21] MEDS: LORazepam 2 MG TABLET PO SCH ×2 (18:08→22:38)
[2021-09-21] MEDS: metFORMIN HCL 500 MG TABLET (FP) PO SCH (18:09)
[2021-09-21] MEDS: MELATONIN 5 MG TABLETS PO SCH (22:38)
[2021-09-21] MEDS: THIAMINE HCL 100 MG TABLET (FP) PO SCH (22:38)
[2021-09-21] MEDS: METHOCARBAMOL 500 MG TABLET PO PRN (22:39)
[2021-09-22] MEDS ORDERED: methaDONE HCL 10 MG TABLET ONE (04:31)
[2021-09-22] MEDS ORDERED: methaDONE HCL 40 MG DISPERSABLE TABLET ONE (04:32)
[2021-09-22] MEDS ORDERED: chlordiazePOXIDE HCL 25 MG CAPSULE PO SCH (05:00)
[2021-09-22] MEDS: GABAPENTIN 300 MG CAPSULE PO SCH ×3 (05:22→22:30)
[2021-09-22] MEDS: LORazepam 2 MG TABLET PO SCH ×4 (05:23→22:30)
[2021-09-22] MEDS: METHOCARBAMOL 500 MG TABLET PO PRN ×2 (05:24→22:33)
[2021-09-22] MEDS: NICOTINE 10 MG CARTRIDGE (INHALER) IH PRN ×2 (05:28→10:36)
[2021-09-22] MEDS: metFORMIN HCL 500 MG TABLET (FP) PO SCH ×2 (07:24→17:57)
[2021-09-22] MEDS: PANTOPRAZOLE 20 MG TABLET PO SCH (10:34)
[2021-09-22] MEDS: ASPIRIN COATED 81 MG TABLET.EC PO SCH (10:34)
[2021-09-22] MEDS: amLODIPine BESYLATE 5 MG TABLET (FP) PO SCH (10:34)
[2021-09-22] MEDS: PRENATAL VITAMINS W/ FOLIC ACID TABLET (FP) PO SCH (10:34)
[2021-09-22] MEDS: NICOTINE 14 MG/24 HOURS TOPICAL PATCH TD SCH (10:35)
[2021-09-22] MEDS: LIDOCAINE 5% TOPICAL PATCH TP SCH (10:39)
[2021-09-22] MEDS: THIAMINE HCL 100 MG TABLET (FP) PO SCH (22:30)
[2021-09-22] MEDS: MELATONIN 5 MG TABLETS PO SCH (22:30)
[2021-09-22] MEDS: LIDOCAINE PATCH REMOVAL MC SCH (23:01)
[2021-09-23] MEDS ORDERED: chlordiazePOXIDE HCL 10 MG CAPSULE PO PRN
[2021-09-23] MEDS ORDERED: methaDONE HCL 10 MG TABLET ONE (04:12)
[2021-09-23] MEDS ORDERED: methaDONE HCL 40 MG DISPERSABLE TABLET ONE (04:13)
[2021-09-23] MEDS ORDERED: chlordiazePOXIDE HCL 10 MG CAPSULE PO SCH (05:00)
[2021-09-23] MEDS: LORazepam 1 MG TABLET PO SCH ×4 (06:11→22:00)
[2021-09-23] MEDS: GABAPENTIN 300 MG CAPSULE PO SCH ×3 (06:12→21:45)
[2021-09-23] MEDS: metFORMIN HCL 500 MG TABLET (FP) PO SCH ×2 (07:01→18:10)
[2021-09-23] MEDS: PRENATAL VITAMINS W/ FOLIC ACID TABLET (FP) PO SCH (10:47)
[2021-09-23] MEDS: PANTOPRAZOLE 20 MG TABLET PO SCH (10:48)
[2021-09-23] MEDS: ASPIRIN COATED 81 MG TABLET.EC PO SCH (10:48)
[2021-09-23] MEDS: amLODIPine BESYLATE 5 MG TABLET (FP) PO SCH (10:48)
[2021-09-23] MEDS: LIDOCAINE 5% TOPICAL PATCH TP SCH (10:49)
[2021-09-23] MEDS: NICOTINE 14 MG/24 HOURS TOPICAL PATCH TD SCH (10:49)
[2021-09-23] MEDS: IBUPROFEN 600 MG TABLET (FP) PO PRN (18:10)
[2021-09-23] MEDS: THIAMINE HCL 100 MG TABLET (FP) PO SCH (21:45)
[2021-09-23] MEDS: METHOCARBAMOL 500 MG TABLET PO PRN (21:45)
[2021-09-23] MEDS: MELATONIN 5 MG TABLETS PO SCH (21:46)
[2021-09-23] MEDS: LIDOCAINE PATCH REMOVAL MC SCH (21:47)
[2021-09-24] MEDS ORDERED: LORazepam 0.5 MG TABLET PO PRN
[2021-09-24] MEDS ORDERED: methaDONE HCL 10 MG TABLET ONE (04:51)
[2021-09-24] MEDS ORDERED: methaDONE HCL 40 MG DISPERSABLE TABLET ONE (04:51)
[2021-09-24] MEDS ORDERED: chlordiazePOXIDE HCL 10 MG CAPSULE PO SCH (05:00)
[2021-09-24] MEDS: GABAPENTIN 300 MG CAPSULE PO SCH ×3 (07:10→22:52)
[2021-09-24] MEDS: metFORMIN HCL 500 MG TABLET (FP) PO SCH ×2 (07:10→17:55)
[2021-09-24] MEDS: LORazepam 0.5 MG TABLET PO SCH ×4 (07:38→22:52)
[2021-09-24] MEDS: NICOTINE 14 MG/24 HOURS TOPICAL PATCH TD SCH (11:15)
[2021-09-24] MEDS: PRENATAL VITAMINS W/ FOLIC ACID TABLET (FP) PO SCH (11:15)
[2021-09-24] MEDS: LIDOCAINE 5% TOPICAL PATCH TP SCH (11:16)
[2021-09-24] MEDS: ASPIRIN COATED 81 MG TABLET.EC PO SCH (11:16)
[2021-09-24] MEDS: hydrOXYzine PAMOATE 25 MG CAPSULE (FP) PO PRN ×2 (11:16→17:55)
[2021-09-24] MEDS: PANTOPRAZOLE 20 MG TABLET PO SCH (11:16)
[2021-09-24] MEDS: amLODIPine BESYLATE 5 MG TABLET (FP) PO SCH (11:16)
[2021-09-24] MEDS: METHOCARBAMOL 500 MG TABLET PO PRN (15:07)
[2021-09-24] MEDS: THIAMINE HCL 100 MG TABLET (FP) PO SCH (22:52)
[2021-09-24] MEDS: MELATONIN 5 MG TABLETS PO SCH (22:53)
[2021-09-24] MEDS: LIDOCAINE PATCH REMOVAL MC SCH (23:02)
[2021-09-25] MEDS ORDERED: methaDONE HCL 10 MG TABLET ONE (04:33)
[2021-09-25] MEDS ORDERED: methaDONE HCL 40 MG DISPERSABLE TABLET ONE (04:33)
[2021-09-25] MEDS ORDERED: chlordiazePOXIDE HCL 10 MG CAPSULE PO ONE (05:00)
[2021-09-25] MEDS ORDERED: LORazepam 0.5 MG TABLET PO ONE (05:00)
[2021-09-25] MEDS: metFORMIN HCL 500 MG TABLET (FP) PO SCH ×2 (06:21→17:20)
[2021-09-25] MEDS: GABAPENTIN 300 MG CAPSULE PO SCH ×3 (06:22→22:41)
[2021-09-25] MEDS: LIDOCAINE 5% TOPICAL PATCH TP SCH (11:09)
[2021-09-25] MEDS: PANTOPRAZOLE 20 MG TABLET PO SCH (11:09)
[2021-09-25] MEDS: NICOTINE 14 MG/24 HOURS TOPICAL PATCH TD SCH (11:09)
[2021-09-25] MEDS: amLODIPine BESYLATE 5 MG TABLET (FP) PO SCH (11:09)
[2021-09-25] MEDS: PRENATAL VITAMINS W/ FOLIC ACID TABLET (FP) PO SCH (11:09)
[2021-09-25] MEDS: ASPIRIN COATED 81 MG TABLET.EC PO SCH (11:09)
[2021-09-25] MEDS: METHOCARBAMOL 500 MG TABLET PO PRN (11:10)
[2021-09-25] MEDS: IBUPROFEN 400 MG TABLET (FP) PO PRN (11:10)
[2021-09-25] MEDS: guaiFENesin/D-M SUGAR-FREE/ACLHOL-FREE 118 ML BOTTLE PO SCH ×2 (13:41→22:41)
[2021-09-25] MEDS: LIDOCAINE PATCH REMOVAL MC SCH (22:41)
[2021-09-25] MEDS: THIAMINE HCL 100 MG TABLET (FP) PO SCH (22:41)
[2021-09-25] MEDS: MELATONIN 5 MG TABLETS PO SCH (22:41)
[2021-09-26] MEDS ORDERED: methaDONE HCL 10 MG TABLET ONE (04:30)
[2021-09-26] MEDS ORDERED: methaDONE HCL 40 MG DISPERSABLE TABLET ONE (04:31)
[2021-09-26] MEDS: guaiFENesin/D-M SUGAR-FREE/ACLHOL-FREE 118 ML BOTTLE PO SCH ×3 (06:39→23:01)
[2021-09-26] MEDS: metFORMIN HCL 500 MG TABLET (FP) PO SCH ×2 (06:39→17:23)
[2021-09-26] MEDS: GABAPENTIN 300 MG CAPSULE PO SCH ×3 (06:39→23:02)
[2021-09-26] MEDS: NICOTINE 14 MG/24 HOURS TOPICAL PATCH TD SCH (10:33)
[2021-09-26] MEDS: LIDOCAINE 5% TOPICAL PATCH TP SCH (10:33)
[2021-09-26] MEDS: PRENATAL VITAMINS W/ FOLIC ACID TABLET (FP) PO SCH (10:33)
[2021-09-26] MEDS: ASPIRIN COATED 81 MG TABLET.EC PO SCH (10:33)
[2021-09-26] MEDS: amLODIPine BESYLATE 5 MG TABLET (FP) PO SCH (10:33)
[2021-09-26] MEDS: PANTOPRAZOLE 20 MG TABLET PO SCH (10:33)
[2021-09-26] MEDS: NICOTINE 10 MG CARTRIDGE (INHALER) IH PRN (13:54)
[2021-09-26] MEDS: MELATONIN 5 MG TABLETS PO SCH (23:01)
[2021-09-26] MEDS: LIDOCAINE PATCH REMOVAL MC SCH (23:01)
[2021-09-26] MEDS: THIAMINE HCL 100 MG TABLET (FP) PO SCH (23:02)
[2021-09-27] MEDS ORDERED: methaDONE HCL 10 MG TABLET ONE (04:21)
[2021-09-27] MEDS ORDERED: methaDONE HCL 40 MG DISPERSABLE TABLET ONE (04:21)
[2021-09-27] MEDS: metFORMIN HCL 500 MG TABLET (FP) PO SCH ×2 (06:32→18:02)
[2021-09-27] MEDS: GABAPENTIN 300 MG CAPSULE PO SCH ×3 (06:32→22:37)
[2021-09-27] MEDS: guaiFENesin/D-M SUGAR-FREE/ACLHOL-FREE 118 ML BOTTLE PO SCH ×3 (06:33→22:37)
[2021-09-27] MEDS: PRENATAL VITAMINS W/ FOLIC ACID TABLET (FP) PO SCH (09:54)
[2021-09-27] MEDS: PANTOPRAZOLE 20 MG TABLET PO SCH (09:54)
[2021-09-27] MEDS: NICOTINE 14 MG/24 HOURS TOPICAL PATCH TD SCH (09:55)
[2021-09-27] MEDS: LIDOCAINE 5% TOPICAL PATCH TP SCH (10:00)
[2021-09-27] MEDS: amLODIPine BESYLATE 5 MG TABLET (FP) PO SCH (10:00)
[2021-09-27] MEDS: ASPIRIN COATED 81 MG TABLET.EC PO SCH (10:01)
[2021-09-27] MEDS ORDERED: guaiFENesin 200 MG/10 ML 10 ML UNIT-DOSE CUPS PO PRN (14:49)
[2021-09-27] MEDS: MELATONIN 5 MG TABLETS PO SCH (22:37)
[2021-09-27] MEDS: THIAMINE HCL 100 MG TABLET (FP) PO SCH (22:37)
[2021-09-27] MEDS: LIDOCAINE PATCH REMOVAL MC SCH (22:38)
[2021-09-27] MEDS: BISMUTH SUBSALICYLATE 262 MG/15 ML BTL PO PRN (22:41)
[2021-09-28] MEDS ORDERED: methaDONE HCL 40 MG DISPERSABLE TABLET ONE (04:06)
[2021-09-28] MEDS ORDERED: methaDONE HCL 10 MG TABLET ONE (04:06)
[2021-09-28] MEDS ORDERED: INSULIN SLIDING SCALE (NOVOLOG) 1 VIAL SQ ONE (05:13)
[2021-09-28] MEDS: guaiFENesin/D-M SUGAR-FREE/ACLHOL-FREE 118 ML BOTTLE PO SCH (06:40)
[2021-09-28] MEDS: metFORMIN HCL 500 MG TABLET (FP) PO SCH ×2 (06:40→18:19)
[2021-09-28] MEDS: GABAPENTIN 300 MG CAPSULE PO SCH ×3 (06:40→23:41)
[2021-09-28] MEDS: ASPIRIN COATED 81 MG TABLET.EC PO SCH (10:31)
[2021-09-28] MEDS: PANTOPRAZOLE 20 MG TABLET PO SCH (10:31)
[2021-09-28] MEDS: LIDOCAINE 5% TOPICAL PATCH TP SCH (10:31)
[2021-09-28] MEDS: PRENATAL VITAMINS W/ FOLIC ACID TABLET (FP) PO SCH (10:31)
[2021-09-28] MEDS: amLODIPine BESYLATE 5 MG TABLET (FP) PO SCH (10:31)
[2021-09-28] MEDS: NICOTINE 14 MG/24 HOURS TOPICAL PATCH TD SCH (10:32)
[2021-09-28] MEDS: INSULIN SLIDING SCALE (NOVOLOG) 1 VIAL SQ SCH ×2 (11:11→19:43)
[2021-09-28 15:09] LABS: ALBUMIN 3.2 g/dl (3.4-5.0)
[2021-09-28 15:12] LABS: BILIRUBIN,DIRECT 0.4 mg/dL (0.0-0.2)
[2021-09-28 15:14] LABS: BILIRUBIN,TOTAL 0.7 mg/dL (0.2-1)
[2021-09-28] MEDS: IBUPROFEN 600 MG TABLET (FP) PO PRN (18:18)
[2021-09-28] MEDS: LIDOCAINE PATCH REMOVAL MC SCH (23:41)
[2021-09-28] MEDS: MELATONIN 5 MG TABLETS PO SCH (23:41)
[2021-09-28] MEDS: THIAMINE HCL 100 MG TABLET (FP) PO SCH (23:42)
[2021-09-29] MEDS ORDERED: methaDONE HCL 10 MG TABLET ONE (03:53)
[2021-09-29] MEDS ORDERED: methaDONE HCL 40 MG DISPERSABLE TABLET ONE (03:53)
[2021-09-29] MEDS: GABAPENTIN 300 MG CAPSULE PO SCH ×3 (06:52→23:13)
[2021-09-29] MEDS: metFORMIN HCL 500 MG TABLET (FP) PO SCH ×2 (06:52→18:13)
[2021-09-29] MEDS: INSULIN SLIDING SCALE (NOVOLOG) 1 VIAL SQ SCH ×4 (07:14→18:12)
[2021-09-29] MEDS: amLODIPine BESYLATE 5 MG TABLET (FP) PO SCH (09:42)
[2021-09-29] MEDS: PANTOPRAZOLE 20 MG TABLET PO SCH (09:43)
[2021-09-29] MEDS: PRENATAL VITAMINS W/ FOLIC ACID TABLET (FP) PO SCH (09:43)
[2021-09-29] MEDS: LIDOCAINE 5% TOPICAL PATCH TP SCH (09:43)
[2021-09-29] MEDS: ASPIRIN COATED 81 MG TABLET.EC PO SCH (09:43)
[2021-09-29] MEDS: NICOTINE 14 MG/24 HOURS TOPICAL PATCH TD SCH (09:43)
[2021-09-29] MEDS: IBUPROFEN 600 MG TABLET (FP) PO PRN (23:12)
[2021-09-29] MEDS: LIDOCAINE PATCH REMOVAL MC SCH (23:13)
[2021-09-29] MEDS: THIAMINE HCL 100 MG TABLET (FP) PO SCH (23:13)
[2021-09-29] MEDS: MELATONIN 5 MG TABLETS PO SCH (23:13)
[2021-09-30] MEDS ORDERED: methaDONE HCL 40 MG DISPERSABLE TABLET ONE (04:07)
[2021-09-30] MEDS ORDERED: methaDONE HCL 10 MG TABLET ONE (04:07)
[2021-09-30] MEDS: GABAPENTIN 300 MG CAPSULE PO SCH ×3 (06:34→23:11)
[2021-09-30] MEDS: metFORMIN HCL 500 MG TABLET (FP) PO SCH ×2 (06:34→17:08)
[2021-09-30] MEDS: INSULIN SLIDING SCALE (NOVOLOG) 1 VIAL SQ SCH ×3 (06:44→17:09)
[2021-09-30] MEDS: PRENATAL VITAMINS W/ FOLIC ACID TABLET (FP) PO SCH (10:34)
[2021-09-30] MEDS: PANTOPRAZOLE 20 MG TABLET PO SCH (10:34)
[2021-09-30] MEDS: ASPIRIN COATED 81 MG TABLET.EC PO SCH (10:34)
[2021-09-30] MEDS: amLODIPine BESYLATE 5 MG TABLET (FP) PO SCH (10:34)
[2021-09-30] MEDS: NICOTINE 14 MG/24 HOURS TOPICAL PATCH TD SCH (10:35)
[2021-09-30] MEDS: NICOTINE 10 MG CARTRIDGE (INHALER) IH PRN (10:53)
[2021-09-30] MEDS: LIDOCAINE 5% TOPICAL PATCH TP SCH (11:29)
[2021-09-30] MEDS: MELATONIN 5 MG TABLETS PO SCH (23:10)
[2021-09-30] MEDS: LIDOCAINE PATCH REMOVAL MC SCH (23:10)
[2021-09-30] MEDS: THIAMINE HCL 100 MG TABLET (FP) PO SCH (23:10)
[2021-09-30] MEDS: IBUPROFEN 400 MG TABLET (FP) PO PRN (23:10)
[2021-10-01] MEDS ORDERED: methaDONE HCL 40 MG DISPERSABLE TABLET ONE (04:11)
[2021-10-01] MEDS ORDERED: methaDONE HCL 10 MG TABLET ONE (04:11)
[2021-10-01] MEDS: metFORMIN HCL 500 MG TABLET (FP) PO SCH ×2 (06:22→17:37)
[2021-10-01] MEDS: GABAPENTIN 300 MG CAPSULE PO SCH ×3 (06:22→21:56)
[2021-10-01] MEDS: INSULIN SLIDING SCALE (NOVOLOG) 1 VIAL SQ SCH ×3 (06:55→17:37)
[2021-10-01] MEDS: PRENATAL VITAMINS W/ FOLIC ACID TABLET (FP) PO SCH (11:18)
[2021-10-01] MEDS: ASPIRIN COATED 81 MG TABLET.EC PO SCH (11:18)
[2021-10-01] MEDS: amLODIPine BESYLATE 5 MG TABLET (FP) PO SCH (11:18)
[2021-10-01] MEDS: PANTOPRAZOLE 20 MG TABLET PO SCH (11:18)
[2021-10-01] MEDS: LIDOCAINE 5% TOPICAL PATCH TP SCH (11:19)
[2021-10-01] MEDS: BISMUTH SUBSALICYLATE 262 MG/15 ML BTL PO PRN (11:32)
[2021-10-01] MEDS: NICOTINE 14 MG/24 HOURS TOPICAL PATCH TD SCH (11:33)
[2021-10-01] MEDS: NICOTINE 10 MG CARTRIDGE (INHALER) IH PRN (12:58)
[2021-10-01] MEDS: IBUPROFEN 400 MG TABLET (FP) PO PRN (13:06)
[2021-10-01] MEDS: MELATONIN 5 MG TABLETS PO SCH (21:56)
[2021-10-01] MEDS: THIAMINE HCL 100 MG TABLET (FP) PO SCH (21:56)
[2021-10-01] MEDS: LIDOCAINE PATCH REMOVAL MC SCH (21:59)
[2021-10-02] MEDS ORDERED: methaDONE HCL 10 MG TABLET ONE (03:21)
[2021-10-02] MEDS ORDERED: methaDONE HCL 40 MG DISPERSABLE TABLET ONE (03:21)
[2021-10-02] MEDS: metFORMIN HCL 500 MG TABLET (FP) PO SCH ×2 (06:10→16:56)
[2021-10-02] MEDS: GABAPENTIN 300 MG CAPSULE PO SCH ×3 (06:10→22:38)
[2021-10-02] MEDS: INSULIN SLIDING SCALE (NOVOLOG) 1 VIAL SQ SCH ×3 (06:44→16:37)
[2021-10-02] MEDS: amLODIPine BESYLATE 5 MG TABLET (FP) PO SCH (11:03)
[2021-10-02] MEDS: PANTOPRAZOLE 20 MG TABLET PO SCH (11:03)
[2021-10-02] MEDS: PRENATAL VITAMINS W/ FOLIC ACID TABLET (FP) PO SCH (11:03)
[2021-10-02] MEDS: NICOTINE 14 MG/24 HOURS TOPICAL PATCH TD SCH (11:03)
[2021-10-02] MEDS: LIDOCAINE 5% TOPICAL PATCH TP SCH (11:03)
[2021-10-02] MEDS: ASPIRIN COATED 81 MG TABLET.EC PO SCH (11:03)
[2021-10-02] MEDS: THIAMINE HCL 100 MG TABLET (FP) PO SCH (22:38)
[2021-10-02] MEDS: MELATONIN 5 MG TABLETS PO SCH (22:38)
[2021-10-02] MEDS: LIDOCAINE PATCH REMOVAL MC SCH (22:39)
[2021-10-02] MEDS: BISMUTH SUBSALICYLATE 262 MG/15 ML BTL PO PRN (22:48)
[2021-10-03] MEDS ORDERED: methaDONE HCL 40 MG DISPERSABLE TABLET ONE (04:22)
[2021-10-03] MEDS ORDERED: methaDONE HCL 10 MG TABLET ONE (04:22)
[2021-10-03] MEDS: GABAPENTIN 300 MG CAPSULE PO SCH (06:43)
[2021-10-03] MEDS: metFORMIN HCL 500 MG TABLET (FP) PO SCH (06:43)
[2021-10-03] MEDS: INSULIN SLIDING SCALE (NOVOLOG) 1 VIAL SQ SCH (08:01)
[2021-10-03 08:50] VITALS: BP 131/90; PULSE 88; TEMP 97.1
[2021-10-03] MEDS: NICOTINE 14 MG/24 HOURS TOPICAL PATCH TD SCH (11:23)
[2021-10-03] MEDS: LIDOCAINE 5% TOPICAL PATCH TP SCH (11:23)
[2021-10-03] MEDS: amLODIPine BESYLATE 5 MG TABLET (FP) PO SCH (11:23)
[2021-10-03] MEDS: PANTOPRAZOLE 20 MG TABLET PO SCH (11:23)
[2021-10-03] MEDS: ASPIRIN COATED 81 MG TABLET.EC PO SCH (11:23)
[2021-10-03] MEDS: PRENATAL VITAMINS W/ FOLIC ACID TABLET (FP) PO SCH (11:24)
== END 2021-10-03 11:05 | disposition home or self-care (01) | DRG 773 ==
LOC: YASAS 11:38 → Y3N 12:46
PROVIDERS: ADMIT Allergy & Immunology; ATTEND Surgery
PROC: HZ2ZZZZ Detoxification Services for Substance Abuse Treatment (ICD-10-PCS; principal; 2021-09-20)
DX: F11.23 Opioid dependence with withdrawal (principal); F10.230 Alcohol dependence with withdrawal, uncomplicated; F14.20 Cocaine dependence, uncomplicated; F12.20 Cannabis dependence, uncomplicated; F17.220 Nicotine dependence, chewing tobacco, uncomplicated; F19.24 Other psychoactive substance dependence with psychoactive substance-induced mood disorder; U07.1 COVID-19; I10 Essential (primary) hypertension; K21.9 Gastro-esophageal reflux disease without esophagitis; E11.65 Type 2 diabetes mellitus with hyperglycemia; Z79.84 Long term (current) use of oral hypoglycemic drugs; M54.42 Lumbago with sciatica, left side; G89.29 Other chronic pain; E66.9 Obesity, unspecified; Z68.37 Body mass index [BMI] 37.0-37.9, adult
CPT/HCPCS: 36415; 71046-TC-FY; 80053; 80076; 82962; 84132; 85027; 86780; 87811; C9803-CS; U0003; U0005